=== PATIENT | male | born 1990 | race Hispanic/Latino ===

== ENCOUNTER 2018-06-08 12:18 | Inpatient (IN) | payer SELFPAY ==
[~2018-06-08] VITALS: Ht 175.3 cm; Wt 64.0 kg
[2018-06-08] MEDS ORDERED: IBUPROFEN 400 MG TAB PO ONE (12:30)
[2018-06-08 13:01] LABS: BASOPHILS % 0.6 % (0.0-1.0); EOSINOPHILS # (AUTO) 0.1 (0.0-0.4); EOSINOPHILS % 0.9 % (0.0-6.0); HEMOGLOBIN 13.2 g/dL (14.0-18.0); LYMPHOCYTES # (AUTO) 0.9 (1.0-3.2); MEAN CORPUSCULAR HEMOGLOBIN 31.6 pg (28-32); MEAN CORPUSCULAR HGB CONC 35.7 g/dL (31-35); MEAN CORPUSCULAR VOLUME 88.5 fL (81-99); MONOCYTES # (AUTO) 0.5 (0.2-0.8); MONOCYTES % 8.7 % (4.4-11.3); NEUTROPHILS # (AUTO) 3.9 (2.1-6.9); NEUTROPHILS % 72.4 % (38.7-80.0); PLATELET COUNT 223 x10e3/uL (140-360); RED BLOOD COUNT 4.18 x10e6/uL (4.3-5.7); RED CELL DISTRIBUTION WIDTH 11.2 % (11.7-14.4)
[2018-06-08 13:05] LABS: CLARITY,URINE CLEAR (CLEAR); COLOR,URINE ORANGE (YELLOW)
[2018-06-08 13:06] LABS: BILIRUBIN,URINE 1+ (NEGATIVE); KETONES,URINE 1+ (NEGATIVE); LEUKOCYTE ESTERASE ,URINE NEGATIVE (NEGATIVE); NITRITE,URINE NEGATIVE (NEGATIVE); PROTEIN,URINE DIPSTICK 1+ (NEGATIVE); URINE UROBILINOGEN 4 mg/dL (0.2 - 1)
--- NOTE | 2018-06-08 13:21 | Diagnostic Imaging Report ---
PROCEDURE: X-RAY CHEST, TWO VIEWS COMPARISON: None. INDICATIONS: SORE THROAT, COUGH FINDINGS: Lungs are well-inflated. No focal airspace consolidation, pleural effusion, or pneumothorax. Diffuse prominence of the interstitial markings in a central predominant distribution. Normal heart size. No acute osseous abnormality. CONCLUSION: Findings compatible with viral or atypical pneumonia in the clinical setting of sore throat and cough. No lobar consolidation. Followup chest radiograph in 6-8 weeks is suggested to document resolution. Dictated by: Nehemias Loya M.D. on 06/08/2018 at 13:27 Electronically approved by: Nehemias Loya M.D. on 06/08/2018 at 13:27
[2018-06-08 13:24] LABS: ALANINE AMINOTRANSFERASE 30 IU/L (0-55); ALBUMIN 3.4 g/dL (3.5-5.0); ALBUMIN/GLOBULIN RATIO 0.7 (0.8-2.0); ALKALINE PHOSPHATASE 47 IU/L (40-150); ANION GAP 12.9 mmol/L (8-16); BLOOD UREA NITROGEN 10 mg/dL (7-26); BUN/CREATININE RATIO 12 (6-25); CALCIUM 9.2 mg/dL (8.4-10.2); CARBON DIOXIDE 26 mmol/L (22-29); CHLORIDE 101 mmol/L (98-107); CREATININE, SERUM 0.82 mg/dL (0.72-1.25); EST GLOMERULAR FILTRATION RATE > 60 ML/MIN (60-); GLUCOSE 89 mg/dL (74-118); POTASSIUM 3.9 mmol/L (3.5-5.1); SODIUM 136 mmol/L (136-145)
[2018-06-08 13:35] LABS: BACTERIA,URINE FEW /HPF; EPITHELIAL CELLS,URINE FEW /LPF
[2018-06-08] MEDS ORDERED: LEVOFLOXACIN 500MG/D5W 100ML 100 ML IV STA (14:04)
--- NOTE | 2018-06-08 14:32 | Diagnostic Imaging Report ---
PROCEDURE: CT ABDOMEN AND PELVIS WITHOUT CONTRAST TECHNIQUE: The abdomen and pelvis were scanned utilizing a multidetector helical scanner from the diaphragm to the lesser trochanter after the oral administration of water. No intravenous contrast was administered per referring physician request. Coronal and sagittal multiplanar reformations were obtained. COMPARISON: None. INDICATIONS: RIGHT LOWER ABDOMINAL PAIN, FEVER FINDINGS: ABSENCE OF INTRAVENOUS CONTRAST DECREASES SENSITIVITY FOR DETECTION OF FOCAL LESIONS AND VASCULAR PATHOLOGY. LOWER THORAX: Central predominant groundglass opacities within the visualized right middle lobe, lingula, and lower lobes. No pleural or pericardial effusion.. HEPATOBILIARY: No focal hepatic lesions. No biliary ductal dilatation. SPLEEN: No splenomegaly. PANCREAS: No focal masses or ductal dilatation. ADRENALS: No adrenal nodules. KIDNEYS/URETERS: 1.5 cm hypoattenuating lesion in the right kidney, average internal attenuation 0-5 Hounsfield units compatible with a simple cyst. No additional focal renal lesion. No hydronephrosis. No renal, ureteral, or bladder calculi. PELVIC ORGANS/BLADDER: The urinary bladder is incompletely distended but otherwise unremarkable. Prostate and seminal vesicles appear normal.. PERITONEUM / RETROPERITONEUM: No ascites. No pneumoperitoneum. LYMPH NODES: No pelvic sidewall, retroperitoneal, or mesenteric lymphadenopathy. VESSELS: Limited evaluation without intravenous contrast. The abdominal aorta is non-aneurysmal. GI TRACT: The large bowel shows no evidence of distention or wall thickening. The appendix is normal. No small bowel dilatation to suggest obstruction. BONES AND SOFT TISSUES: No focal soft tissue abnormalities. No osseous destructive lesions. Transitional lumbosacral anatomy with a right-sided pseudoarthrosis between L5 and S1. IMPRESSION: No acute intra-abdominal or pelvic CT abnormalities. Normal appendix. Pulmonary groundglass opacities partially visualized, suggestive of viral or atypical pneumonia. Dictated by: Nehemias Loya M.D. on 06/08/2018 at 14:36 Electronically approved by: Nehemias Loya M.D. on 06/08/2018 at 14:36
[2018-06-08] MEDS: ALBUTEROL/IPRATROPIUM 3 ML NEB NEB SCH ×3 (15:00→23:25)
[2018-06-08] MEDS ORDERED: ACETAMINOPHEN 325 MG TAB PO PRN (15:00)
[2018-06-08] MEDS ORDERED: IBUPROFEN 600 MG TAB PO PRN (15:00)
[2018-06-08] MEDS: VANCOMYCIN 1GM/NS 250 ML 250 ML IV SCH (15:41)
[2018-06-08] MEDS: METHYLPREDNISOLONE SOD SUCC 40 MG/ML VIAL IV SCH (15:41)
[2018-06-08 16:30] VITALS: BP 115/70
[2018-06-08 16:37] VITALS: BP 115/70
[2018-06-08 20:41] VITALS: BP 115/64
[2018-06-08 20:56] LABS: HIV 1&2 AB SCREEN ***REACTIVE*** (NONREACTIVE)
[2018-06-08] MEDS: BENZONATATE 100 MG CAP PO SCH (21:00)
--- NOTE | 2018-06-08 21:14 | History and Physical ---
PRIMARY CARE PHYSICIAN: None. CHIEF COMPLAINT: Fatigue, weight loss. HISTORY OF PRESENT ILLNESS: This is a 28-year-old man with a history of pharyngitis, who has been having a couple of weeks of fatigue, tiredness, weight loss about 10 pounds, unintentional, some cough, chills and sweats at home. Went to [facility], given azithromycin 2 weeks ago, but symptoms persisted. When he came here to the hospital, he was found to have pneumonia which appears to be atypical in appearance and signs of ground-glass opacity. He is admitted for further evaluation and management. The patient has not traveled out of the country for the entire year. PAST MEDICAL HISTORY: Right renal cyst, pharyngitis. PAST SURGICAL HISTORY: None. ALLERGIES: PER ELECTRONIC MEDICAL RECORD. FAMILY HISTORY/SOCIAL HISTORY: The patient drinks alcohol, occasional. No illicits. He smokes marijuana occasionally. 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 MEDICATIONS: Per electronic medical record. REVIEW OF SYSTEMS: Denies any dizziness, chest pain. Denies any leg pain, back pain, headache, blurred vision. PHYSICAL EXAMINATION VITAL SIGNS: Have been reviewed. Temperature as high as 101.3 and heart rate as high as 109. GENERAL: A tired-appearing man, resting in bed. HEENT: Anicteric. Pupils are responsive to light. No oral lesions. CARDIOVASCULAR: Normal S1 and S2. LUNGS: Bilateral breath sounds somewhat reduced, mildly coarse. ABDOMEN: Soft, nontender, nondistended. EXTREMITY: No edema. No calf tenderness. NEUROLOGICAL: Alert and oriented times 3. Moves all extremities. SKIN: Dry. PSYCHIATRIC: Normal affect. LABS: Reviewed. MEDICATIONS: Reviewed. ASSESSMENT: [id number]-old man with, 1. Pneumonia, likely atypical, likely pneumonitis with ground-glass opacity. 2. Unintentional weight loss. 3. Normocytic anemia, mild. 4. Acute transaminitis. 5. Hyperbilirubinemia. PLAN 1. Continue Levaquin and vancomycin. 2. Also treat with IV steroids. 3. His mono screen testing is negative. Group A Strep is negative. 4. We will obtain HIV screen and CD4 for unintentional weight loss. 5. Check TSH. 6. Check sed rate. 7. Obtain hepatitis panel. 8. Will follow up blood cultures and urine cultures. 9. Will obtain viral respiratory panel. 1. Lovenox for DVT prophylaxis and Pepcid. 2. Disposition: Follow up labs. Job#: [id number] JESÚS
[2018-06-08] MEDS: GUAIFENESIN/DEXTROMETHORPHAN LIQD 5 ML UDC NG SCH (21:34)
[2018-06-09] VITALS (8 sets, daily range): BP systolic 110–122; BP diastolic 62–78
[2018-06-09] MEDS: ALBUTEROL/IPRATROPIUM 3 ML NEB NEB SCH ×6 (03:20→23:30)
[2018-06-09] MEDS: METHYLPREDNISOLONE SOD SUCC 40 MG/ML VIAL IV SCH ×2 (03:45→15:02)
[2018-06-09] MEDS: GUAIFENESIN/DEXTROMETHORPHAN LIQD 5 ML UDC NG SCH ×2 (05:10→14:00)
[2018-06-09] MEDS: FAMOTIDINE 20 MG TAB PO SCH ×2 (08:00→16:30)
[2018-06-09] MEDS: BENZONATATE 100 MG CAP PO SCH ×3 (08:00→21:39)
[2018-06-09] MEDS: LEVOFLOXACIN 750MG/D5W 150ML 150 ML IV SCH (14:45)
[2018-06-09] MEDS: VANCOMYCIN 1GM/NS 250 ML 250 ML IV SCH (16:30)
[2018-06-09] MEDS: ENOXAPARIN SOD INJ 40 MG/0.4 ML SYR SC SCH (16:30)
[2018-06-09] MEDS ORDERED: GUAIFENESIN/DEXTROMETHORPHAN LIQD 5 ML UDC NG PRN (17:15)
--- NOTE | 2018-06-09 21:40 | Progress Note ---
DATE: June 09, 2018 TIME: 5 p.m. OVERNIGHT: No events, feeling a little better. REVIEW OF SYSTEMS: Denies any dizziness, chest pain, nausea, vomiting, leg pain, back pain. PHYSICAL EXAMINATION: VITAL SIGNS: Reviewed. GENERAL APPEARANCE: Tired-appearing man resting in bed. HEENT: Anicteric. CARDIOVASCULAR: Normal S1 and S2. LUNGS: He has moderate breath sounds, slightly reduced. ABDOMEN: Soft, nontender, nondistended. EXTREMITIES: No edema. SKIN: Dry. PSYCHIATRIC: Flat affect. LABS: Reviewed. MEDICATIONS: Reviewed. ASSESSMENT: A 28-year-old man: 1. Pneumonia. 2. Pneumonitis. 3. Unintentional weight loss. 4. Normocytic anemia. 5. Acute transaminitis. 6. Hyperbilirubinemia. PLAN: 1. Continue vancomycin and Levaquin. 2. Continue IV steroids. 3. [place] screen negative, strep testing negative. 4. Follow up HIV screening. 5. Follow up QuantiFERON testing. 6. Follow up hepatitis panel. 7. TSH was somewhat low. 8. His HIV screening is reactive, will follow up confirmatory testing. Job#: [id number]
[2018-06-10] VITALS (7 sets, daily range): BP systolic 110–130; BP diastolic 63–78
[2018-06-10] MEDS: ALBUTEROL/IPRATROPIUM 3 ML NEB NEB SCH ×6 (03:00→23:30)
[2018-06-10] MEDS: METHYLPREDNISOLONE SOD SUCC 40 MG/ML VIAL IV SCH ×2 (03:04→15:08)
[2018-06-10] MEDS: BENZONATATE 100 MG CAP PO SCH ×3 (08:30→20:13)
[2018-06-10] MEDS: FAMOTIDINE 20 MG TAB PO SCH ×2 (08:30→16:30)
--- NOTE | 2018-06-10 08:42 | Progress Note ---
DATE: June 10, 2018 TIME: 8:15 a.m. OVERNIGHT: No events. Feeling a little better. REVIEW OF SYSTEMS: Denies any dizziness or chest pain. PHYSICAL EXAMINATION VITAL SIGNS: Reviewed. GENERAL: A tired-appearing man resting in bed. HEENT: Anicteric. CARDIOVASCULAR: Normal S1 and S2. LUNGS: Moderate breath sounds. ABDOMEN: Soft and nondistended. Mild tenderness. EXTREMITIES: No edema. SKIN: Dry. PSYCHIATRIC: Flat affect. LABS: Reviewed. MEDICATIONS: Reviewed. ASSESSMENT: A 28-year-old man with: 1. Pneumonia. 2. Pneumonitis. 3. Unintentional weight loss. 4. Normocytic anemia. 5. Acute transaminitis. 6. Hyperbilirubinemia. 7. Positive human immunodeficiency virus screening, but confirmatory test is still pending. PLAN 1. Continue antibiotics. 2. Continue steroids. 3. [place] screening strep was negative. 4. Follow up QuantiFeron testing. 5. Follow up HIV confirmatory testing. Job#: [id number] CHACHO
--- NOTE | 2018-06-10 08:43 | Progress Note ---
DATE: ADDENDUM TO PROGRESS NOTE REVIEW OF SYSTEMS: Denies any dizziness, chest pain, shortness of breath, fever, or chills. No nausea, vomiting, diarrhea, leg pain, back pain, or headache. Job#: [id number] CF
[2018-06-10] MEDS: LEVOFLOXACIN 750MG/D5W 150ML 150 ML IV SCH (14:45)
[2018-06-10] MEDS: VANCOMYCIN 1GM/NS 250 ML 250 ML IV SCH (16:00)
[2018-06-10] MEDS: ENOXAPARIN SOD INJ 40 MG/0.4 ML SYR SC SCH (17:00)
[2018-06-11] VITALS: BP 131/59
[2018-06-11] MEDS: ALBUTEROL/IPRATROPIUM 3 ML NEB NEB SCH ×3 (03:00→10:20)
[2018-06-11] MEDS: METHYLPREDNISOLONE SOD SUCC 40 MG/ML VIAL IV SCH (03:30)
[2018-06-11 04:00] VITALS: BP 127/68
[2018-06-11] MEDS ORDERED: TESSALON PERLE100 MG PO (07:11)
[2018-06-11] MEDS ORDERED: PREDNISONE20 MG PO (07:11)
[2018-06-11] MEDS ORDERED: LEVAQUIN500 MG PO (07:11)
[2018-06-11 08:32] VITALS: BP 115/72
[2018-06-11 09:30] VITALS: BP 115/72
--- NOTE | 2018-06-11 09:32 | Discharge Summary ---
PRINCIPAL DIAGNOSES 1. Pneumonia. 2. Pneumonitis. 3. Unintentional weight loss. 4. Normocytic anemia. 5. Acute transaminitis. 6. Hyperbilirubinemia. 7. Positive human immunodeficiency virus screening, but confirmatory test still pending. SECONDARY DIAGNOSIS: None. CHIEF COMPLAINT: Weight loss and fatigue. HISTORY OF PRESENT ILLNESS: A 28-year-old man with weight loss and fatigue. Refer to the H and P for further details. HOSPITAL COURSE: The patient was found to have unintentional weight loss and fatigue. He was found to have pneumonia, pneumonitis, acute transaminitis, hyperbilirubinemia. His HIV screening was positive, but confirmatory test is still pending. We also did QuantiFeron testing, which has also been pending. The patient will be discharged home today, and will follow up with me in 5 days for final results. In the meantime, he will be discharged home with antibiotics and steroid therapy. DISCHARGE MEDICATIONS: Per electronic medical record and include benzonatate, Levaquin and prednisone. FOLLOWUP: With me in 1 week. YASMIN BILLY MD Job#: [id number] PA
== END 2018-06-11 11:23 | disposition home or self-care (01) | DRG 976 ==
LOC: ER 12:18 → ERHOLD 15:07 → MED/SURG3 15:56
PROVIDERS: ADMIT Internal Medicine; ATTEND Internal Medicine
DX: J18.9 Pneumonia, unspecified organism (principal); B20 Human immunodeficiency virus [HIV] disease; R63.4 Abnormal weight loss; Z68.20 Body mass index [BMI] 20.0-20.9, adult; D64.9 Anemia, unspecified; R74.0 Nonspecific elevation of levels of transaminase and lactic acid dehydrogenase [LDH]; E80.6 Other disorders of bilirubin metabolism
CPT/HCPCS: 36415; 71046; 74176; 80053; 81001; 83518; 83605; 84443; 85025; 85651; 86308; 86689; 87040; 87070; 87086; 87390; 87535; 94640; 99284; G0433; G0435; J1650; J1956; J2920; J3370

== ENCOUNTER 2018-07-01 22:08 | Inpatient (IN) | payer SELFPAY ==
[~2018-07-01] VITALS: Ht 175.3 cm; Wt 75.4 kg
[~2018-07-01 22:08] MED LIST: LEVAQUIN500 MG PO; PREDNISONE20 MG PO; TESSALON PERLE100 MG PO
[2018-07-01] MEDS ORDERED: ONDANSETRON HCL INJ 2 MG/ML VIAL IV STA (22:29)
[2018-07-01] MEDS ORDERED: SODIUM CHLORIDE 0.9% 1000ML 1,000 ML IV STA (22:29)
[2018-07-01] MEDS ORDERED: MORPHINE SULFATE 2 MG/ML SYR IV STA (22:29)
[2018-07-01] MEDS ORDERED: ACETAMINOPHEN 1000 MG/100 ML IV STA ×2 (22:37)
[2018-07-01 22:59] LABS: BASOPHILS % 0.2 % (0.0-1.0); EOSINOPHILS # (AUTO) 0.1 (0.0-0.4); EOSINOPHILS % 2.6 % (0.0-6.0); HEMOGLOBIN 11.8 g/dL (14.0-18.0); MEAN CORPUSCULAR HEMOGLOBIN 31.3 pg (28-32); MEAN CORPUSCULAR HGB CONC 34.7 g/dL (31-35); MEAN CORPUSCULAR VOLUME 90.2 fL (81-99); MONOCYTES # (AUTO) 0.5 (0.2-0.8); MONOCYTES % 10.1 % (4.4-11.3); NEUTROPHILS % 65.7 % (38.7-80.0); PLATELET COUNT 295 x10e3/uL (140-360); RED BLOOD COUNT 3.77 x10e6/uL (4.3-5.7); RED CELL DISTRIBUTION WIDTH 12.6 % (11.7-14.4)
[2018-07-01 23:11] LABS: INR 1.14; PROTHROMBIN TIME 13.7 seconds (11.9-14.5)
[2018-07-01 23:12] LABS: PARTIAL THROMBOPLASTIN TIME 38.9 seconds (23.8-35.5)
[2018-07-01 23:16] LABS: CLARITY,URINE CLEAR (CLEAR); COLOR,URINE YELLOW (YELLOW); LEUKOCYTE ESTERASE ,URINE NEGATIVE (NEGATIVE); NITRITE,URINE NEGATIVE (NEGATIVE)
[2018-07-01 23:17] LABS: BILIRUBIN,URINE NEGATIVE (NEGATIVE); KETONES,URINE NEGATIVE (NEGATIVE); PROTEIN,URINE DIPSTICK 1+ (NEGATIVE); URINE UROBILINOGEN 1 mg/dL (0.2 - 1)
[2018-07-01 23:21] LABS: ALANINE AMINOTRANSFERASE 11 IU/L (0-55); ALBUMIN/GLOBULIN RATIO 0.6 (0.8-2.0); ALKALINE PHOSPHATASE 58 IU/L (40-150); ANION GAP 14.8 mmol/L (8-16); BLOOD UREA NITROGEN 7 mg/dL (7-26); BUN/CREATININE RATIO 10 (6-25); CALCIUM 8.8 mg/dL (8.4-10.2); CARBON DIOXIDE 24 mmol/L (22-29); CHLORIDE 104 mmol/L (98-107); CREATINE KINASE 69 IU/L (30-200); CREATININE, SERUM 0.68 mg/dL (0.72-1.25); EST GLOMERULAR FILTRATION RATE > 60 ML/MIN (60-); GLUCOSE 87 mg/dL (74-118); MAGNESIUM 1.8 MG/DL (1.3-2.1); POTASSIUM 3.8 mmol/L (3.5-5.1); SODIUM 139 mmol/L (136-145)
[2018-07-01 23:26] LABS: BACTERIA,URINE RARE /HPF; EPITHELIAL CELLS,URINE RARE /LPF; MUCUS,URINE MANY (RARE); RBC,URINE 0-5 /HPF (0-5); WBC,URINE (MAN) 0-5 /HPF (0-5)
--- NOTE | 2018-07-01 23:29 | Diagnostic Imaging Report ---
CHEST 2 VIEWS, Technique: CHEST 2 VIEWS Comparison: 06/08/2018 Clinical history: Cough, fever DISCUSSION: Normal cardiomediastinal silhouette. Increased diffuse bilateral hazy opacities. No effusion or pneumothorax. IMPRESSION: Worsening pneumonia. Differential includes atypical infection, in particular PCP in the proper clinical setting. Signed by: Dr Mariposa Topete MD on 07/01/2018 11:26 PM
[2018-07-01] MEDS: AZITHROMYCIN 500MG/NS 250 ML 250 ML IV SCH (23:37)
[2018-07-01] MEDS: CEFTRIAXONE SOD 1 GM VIAL IV SCH (23:37)
[2018-07-01 23:44] LABS: THYROID STIMULATING HORMONE 0.192 uIU/mL (0.350-4.940)
[2018-07-01] MEDS: TRIMETHOPRIM/SULFAMETHOXAZOLE 160-800 MG TAB PO SCH (23:56)
[2018-07-02] VITALS (9 sets, daily range): BP systolic 99–118; BP diastolic 61–74
[2018-07-02] MEDS ORDERED: ALBUTEROL SULF 0.083% NEB SOLN 3 ML NEB NEB PRN (00:45)
[2018-07-02] MEDS: SODIUM CHLORIDE 0.9% 1000ML 1,000 ML IV SCH ×2 (01:09→11:06)
[2018-07-02] MEDS: TRIMETHOPRIM/SULFAMETHOXAZOLE 160-800 MG TAB PO SCH ×2 (05:43→11:06)
[2018-07-02] MEDS: AZITHROMYCIN 500MG/NS 250 ML 250 ML IV SCH (08:51)
--- NOTE | 2018-07-02 10:08 | History and Physical ---
PRIMARY CARE PHYSICIAN: None. CHIEF COMPLAINT: Shortness of breath, cough, and fever. HISTORY OF PRESENT ILLNESS: This is a 28-year-old man, who was recently admitted back in May with fatigue and weight loss, found to have pneumonia and also found to have positive HIV screening, confirmatory test was still pending at the time. Patient transitioned home with plan to followup outpatient. Patient did not followup. Now, he has represented with fever, anorexia, cough, shortness of breath. He is found to have pneumonia with findings of possible characteristic appearing chest x-ray of PCP. He is admitted for further evaluation and management. PAST MEDICAL HISTORY: Pneumonia, likely atypical; pneumonitis; unintentional weight loss; normocytic anemia, mild; acute transaminitis; hyperbilirubinemia; positive HIV screening test without confirmatory test as yet; pharyngitis; right renal cyst. PAST SURGICAL HISTORY: None. ALLERGIES: PER ELECTRONIC MEDICAL RECORD. FAMILY/SOCIAL HISTORY: Patient drinks alcohol occasionally. No illicits. He smokes marijuana occasionally. 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 MEDICATIONS: Per electronic medical record. REVIEW OF SYSTEMS: Denies any dizziness, chest pain. Denies any leg pain, back pain, headache, vision changes. PHYSICAL EXAMINATION: VITAL SIGNS: Reviewed. GENERAL APPEARANCE: Tired-appearing man resting in bed. HEENT: Anicteric. Lip piercing. CARDIOVASCULAR: Normal S1 and S2. LUNGS: He has reduced breath sounds throughout. ABDOMEN: Soft, nontender, nondistended. EXTREMITIES: No edema or calf tenderness. NEUROLOGICAL: Alert and oriented x3. Moving all extremities. SKIN: Dry. He has lip piercing. LABS: Reviewed. MEDICATIONS: Reviewed. ASSESSMENT: This is a 28-year-old man: 1. Pneumonia, atypical in appearance. 2. Unintentional weight loss. 3. Normocytic anemia. 4. Sinus tachycardia. 5. Anorexia. 6. Elevated AST with normal ALT. PLAN: 1. Antibiotics. 2. Infectious disease consultation. 3. Bactrim prophylactically. 4. HIV retesting as well as confirmatory testing. 5. DVT and GI prophylaxis with Lovenox and Pepcid. Job#: [id number]
[2018-07-02] MEDS: CEFTRIAXONE SOD 1 GM VIAL IV SCH (11:06)
[2018-07-02] MEDS ORDERED: METHYLPREDNISOLONE SOD SUCC 125 MG/2ML VIAL IV NR (15:30)
[2018-07-02] MEDS: IPRATROPIUM BROMIDE 0.02% 2.5 ML NEB NEB PRN ×2 (15:30→23:35)
[2018-07-02] MEDS: LEVOFLOXACIN 750MG/D5W 150ML 150 ML IV SCH (16:00)
[2018-07-02] MEDS: ACETAMINOPHEN 325 MG TAB PO PRN ×2 (16:00→21:27)
[2018-07-02 16:09] LABS: ABG PCO2 23 mmHg (41-51); ABG PH 7.49 (7.31-7.41)
[2018-07-02 16:10] LABS: ABG HCO3 18 mmol/L (23-28); ABG PO2 63 mmHg (80-105)
[2018-07-02] MEDS: VANCOMYCIN HCL 1.25 GM in SODIUM CHLORIDE 0.9% 250ML 250 ML IV SCH (17:00)
--- NOTE | 2018-07-02 17:44 | Consultation ---
DATE OF CONSULTATION: July 02, 2018 REASON FOR CONSULTATION: To evaluate and assist in treating a patient who has pneumonia and recent positive screening test for HIV. HISTORY OF PRESENT ILLNESS: Information is gathered from the current medical record. I interviewed the patient at the bedside. He is a 28-year-old man who has sex with men who reports he has been getting ill since April of this year with intermittent cough, progressively worsening shortness of breath and intermittent fevers. He has been in the hospital at least twice at which time he was treated with antibiotics and discharged. Most recently he was in this hospital for about 4 days in May of this year. According to him, he received antibiotics for 4 days and was discharged home on 5 days of antibiotics. He reported that he felt better somewhat until a few days ago when he again developed fevers, increasing shortness of breath with a cough that for the most part is nonproductive. The patient reports that from April to now he has lost about 25 pounds of weight unintentionally. He denies any vomiting. He denies any significant diarrhea prior to hospitalization. At presentation on July 01, he had a temperature of 103.8 degrees Fahrenheit, a pulse rate of 138, respiratory rate of 21 to 24, and blood pressure 160/68. He has since had blood pressure as low as 91/57. His CBC on July 01 showed a white count of 4.5 thousand, hemoglobin 11.8, platelet count 295,000. Differential on his white count shows 65% neutrophils, 21% lymphocytes on an automated differential. There were 10% monocytes. His serum creatinine was found to be 0.6. His AST was 38. ALT was normal. His lactic acid was found to be 12. His serum total protein 7.7, albumin 3.0. He has had blood and urine cultures collected which are being processed. A chest x-ray is reported with increased, diffuse bilateral hazy opacities with differentials including atypical pneumonia, in particular PCP. The patient has been started on treatment with Azithromycin, ceftriaxone, and Bactrim. ID consult is called to evaluate and assist with further management. PAST MEDICAL HISTORY: As reported above. On June 08, HIV test was reported nonreactive. On June 08, his HIV-1 and HIV-2 antibody test was positive. HIVP 24 antigen test was negative. A confirmatory test report is not available. There was a TB test/T-spot that was reported negative. The patient gives a history of renal cysts. He denies any history of previous diagnosis of HIV, tuberculosis. There is no history of diabetes, hypertension, cardiac, renal or liver disease. SOCIAL HISTORY: He smokes marijuana. He drinks alcohol occasionally. He denies intravenous drug use. As mentioned earlier, he is a man who has sex with men. FAMILY HISTORY: Positive for diabetes mellitus and unspecified intestinal diseases. ALLERGIES: AMOXICILLIN. MEDICATIONS: As reported earlier, he is started on treatment with Bactrim, ceftriaxone and Azithromycin. the rest of his medications are per the medication admission report. REVIEW OF SYSTEMS: The patient is alert. His sensorium is clear. He coughs intermittently. It sounds nonproductive. He appears ill. Otherwise, in no acute distress. He is complaining of pleuritic pain. No headache or neck stiffness. He complains of sore throat. No abdominal pain. No frequency or dysuria. He reports that he has had 2 loose stools. He saw blood on the toilet paper. PHYSICAL EXAMINATION GENERAL: He is an adult male. He appears ill, otherwise in no acute distress. He is hemodynamically stable. VITAL SIGNS: His maximum temperature was at presentation of 103.8 degrees Fahrenheit. His most recent temperature 100.5. HEENT: He has no gross pallor. No obvious icterus. No obvious oral or oropharyngeal thrush. NECK: Supple. CHEST: Symmetric. Breath sounds are course in the lung li. HEART: Sounds are regular. There is tachycardia. No significant murmur. ABDOMEN: Soft and nontender. Normal bowel sounds. EXTREMITIES: No acute erythema of his extremities. No palpable adenopathy. SKIN: No obvious skin rash. NEUROLOGIC: No obvious focal neurologic deficit. LABORATORY DATA: His white count is 4.5, hemoglobin 11.8, platelet count 295,000. Differentials on his white count reported above. His serum creatinine is 0.6 from July 01. Liver function tests are unremarkable except for AST of 38. We have no ABGs report. HIV viral load ordered today is being processed. IMPRESSION: I suspect this 28-year-old male who has sex with men with a positive HIV-1 and HIV-2 antibody test on June 08 has HIV infection. I also suspect he has pneumocystis pneumonia, although he could have other atypical pneumonia. RECOMMENDATIONS: I suggest we change his antibiotic treatment to a combination of vancomycin, Levaquin and Bactrim. Will follow up on his urologies and cultures. Will check his CD-4 count. Will add Solu-Medrol to his treatment regimen. I have discussed the findings and treatment with the patient at the bedside. I will discuss the patient with the primary care physician, whom I thank for the consult and the opportunity to participate in the patient's care. Job#: [id number] GH
[2018-07-02] MEDS: TRIMETHOPRIM IV SCH (18:58)
[2018-07-02] MEDS: SULFAMETHOXAZOLE IV SCH (18:58)
[2018-07-02] MEDS: DEXTROSE 5% IV SCH (18:58)
[2018-07-02] MEDS: METHYLPREDNISOLONE SOD SUCC 125 MG/2ML VIAL IV SCH (21:20)
[2018-07-03] VITALS (7 sets, daily range): BP systolic 103–112; BP diastolic 58–72
[2018-07-03] MEDS: SODIUM CHLORIDE 0.9% 1000ML 1,000 ML IV SCH ×3 (01:15→21:45)
[2018-07-03] MEDS: TRIMETHOPRIM IV SCH ×3 (01:20→18:36)
[2018-07-03] MEDS: SULFAMETHOXAZOLE IV SCH ×3 (01:20→18:36)
[2018-07-03] MEDS: DEXTROSE 5% IV SCH ×3 (01:20→18:36)
[2018-07-03] MEDS: VANCOMYCIN HCL 1.25 GM in SODIUM CHLORIDE 0.9% 250ML 250 ML IV SCH ×2 (04:35→17:44)
[2018-07-03] MEDS: METHYLPREDNISOLONE SOD SUCC 125 MG/2ML VIAL IV SCH ×3 (05:21→21:20)
[2018-07-03 05:47] LABS: HEMATOCRIT 33.2 % (38.2-49.6); HEMOGLOBIN 11.4 g/dL (14.0-18.0); LYMPHOCYTES # (AUTO) 0.4 (1.0-3.2); LYMPHOCYTES % 11.5 % (18.0-39.1); MEAN CORPUSCULAR HEMOGLOBIN 30.8 pg (28-32); MEAN CORPUSCULAR HGB CONC 34.3 g/dL (31-35); MEAN CORPUSCULAR VOLUME 89.7 fL (81-99); MONOCYTES # (AUTO) 0.2 (0.2-0.8); MONOCYTES % 5.1 % (4.4-11.3); NEUTROPHILS # (AUTO) 2.6 (2.1-6.9); NEUTROPHILS % 83.1 % (38.7-80.0); PLATELET COUNT 274 x10e3/uL (140-360); RED CELL DISTRIBUTION WIDTH 12.6 % (11.7-14.4)
[2018-07-03 06:05] LABS: ALANINE AMINOTRANSFERASE 9 IU/L (0-55); ALBUMIN 2.4 g/dL (3.5-5.0); ALBUMIN/GLOBULIN RATIO 0.6 (0.8-2.0); ALKALINE PHOSPHATASE 48 IU/L (40-150); ANION GAP 10.1 mmol/L (8-16); BLOOD UREA NITROGEN 5 mg/dL (7-26); BUN/CREATININE RATIO 8 (6-25); CALCIUM 8.7 mg/dL (8.4-10.2); CARBON DIOXIDE 23 mmol/L (22-29); CHLORIDE 105 mmol/L (98-107); CREATININE, SERUM 0.65 mg/dL (0.72-1.25); EST GLOMERULAR FILTRATION RATE > 60 ML/MIN (60-); GLUCOSE 138 mg/dL (74-118); POTASSIUM 4.1 mmol/L (3.5-5.1); SODIUM 134 mmol/L (136-145)
--- NOTE | 2018-07-03 06:51 | Diagnostic Imaging Report ---
CHEST SINGLE (PORTABLE), Technique: CHEST SINGLE (PORTABLE) Comparison: 07/01/2018 Clinical history: Pneumonia DISCUSSION: Normal cardiomediastinal silhouette. Persistent diffuse bilateral hazy opacities; the apparent increase may be related to differences in technique. No effusion or pneumothorax. IMPRESSION: Persistent findings in keeping with pneumonia. Signed by: Dr Mariposa Topete MD on 07/03/2018 6:48 AM
[2018-07-03] MEDS: TRAMADOL HCL 50 MG TAB PO PRN (12:08)
--- NOTE | 2018-07-03 15:05 | Progress Note ---
DATE: July 03, 2018 TIME: 2:44 p.m. OVERNIGHT: No events. REVIEW OF SYSTEMS: Denies any dizziness, chest pain, leg pain, back pain, headache. PHYSICAL EXAMINATION VITAL SIGNS: Reviewed. GENERAL: A tired-appearing man resting in bed. HEENT: Anicteric. CARDIOVASCULAR: Normal S1 and S2. LUNGS: Reduced breath sounds throughout. ABDOMEN: Soft and nontender. EXTREMITIES: No edema. SKIN: Dry. PSYCHIATRIC: Flat affect. LABS: Reviewed. MEDICATIONS: Reviewed. ASSESSMENT: A 28-year-old man with: 1. Pneumonia, atypical. 2. Unintentional weight loss. 3. Normocytic anemia. 4. Positive human immunodeficiency virus screening. 5. Sinus tachycardia. 6. Anorexia. 7. Elevated liver function tests. PLAN 1. Continue antibiotics. 2. Follow up testing for HIV. 3. Continue IV Bactrim. 4. Continue IV steroids. 5. Continue IV vancomycin and Levaquin. 6. Follow up results. Discussed with the patient and family at bedside. Job#: [id number] CHACHO
[2018-07-03] MEDS: LEVOFLOXACIN 750MG/D5W 150ML 150 ML IV SCH (15:42)
--- NOTE | 2018-07-03 18:11 | Progress Note ---
DATE: July 03, 2018 INFECTIOUS DISEASE PROGRESS NOTE The patient is alert and responsive. He feels much better today compared to yesterday. He still has some pleuritic-type pain. He is not coughing much now. There is less dyspnea at rest and with exertion. No report of nausea, vomiting or diarrhea. In the past 24 hours his temperatures have ranged from 96.5 to 102.5 degrees Fahrenheit. He is hemodynamically stable. He has no gross pallor, no obvious icterus, no oropharyngeal lesions. His neck is supple. The chest is symmetric. Breath sounds are coarse in the lung li. Heart sounds are regular. There is no new murmur. The abdomen is soft. Bowel sounds are present. There is no acute erythema of his extremities. His white count is 3.1, hemoglobin 11.4, platelet count 274. Differentials on his white count 83% neutrophils on an automatic differential. His liver function tests are back to normal. His creatinine is 0.6. His absolute CD4 count report is pending. HIV viral load is pending. Serum RPR is pending. His blood cultures from July 01 are negative. Urine culture shows no growth so far. CT scan of his chest has been previously reported. IMPRESSION: He has pneumonia, likely atypical, highly suspicious for Pneumocystis jirovecii. He has a positive screening test for HIV on June 08. Confirmatory test reports are pending. CD4 count and HIV viral load reports are pending. I suggest continue current antimicrobial coverage. Follow up on his cultures and serologies. Monitor temperature, CBC, renal function. We started the patient on Solu-Medrol yesterday with a pO2 of 63 on ABG. Job#: [id number] EV
[2018-07-04] VITALS (7 sets, daily range): BP systolic 101–118; BP diastolic 59–91
[2018-07-04] MEDS: TRIMETHOPRIM IV SCH ×3 (01:21→17:00)
[2018-07-04] MEDS: SULFAMETHOXAZOLE IV SCH ×3 (01:21→17:00)
[2018-07-04] MEDS: DEXTROSE 5% IV SCH ×3 (01:21→17:00)
[2018-07-04] MEDS: SODIUM CHLORIDE 0.9% 1000ML 1,000 ML IV SCH ×2 (02:35→14:26)
[2018-07-04] MEDS: VANCOMYCIN HCL 1.25 GM in SODIUM CHLORIDE 0.9% 250ML 250 ML IV SCH (05:03)
[2018-07-04] MEDS: METHYLPREDNISOLONE SOD SUCC 125 MG/2ML VIAL IV SCH ×3 (06:00→21:57)
[2018-07-04] MEDS: ONDANSETRON HCL INJ 2 MG/ML VIAL IV PRN ×2 (10:56→17:00)
--- NOTE | 2018-07-04 14:05 | Progress Note ---
DATE: July 04, 2018 MEDICINE PROGRESS NOTE TIME OF SERVICE: 12:30 p.m. OVERNIGHT: No acute events. REVIEW OF SYSTEMS: Patient denies chest pain or shortness of breath. No dizziness, headache, blurry vision, nausea, vomiting, diarrhea or leg pain noted. VITAL SIGNS: T 96.7, P 84, respirations 18, BP 101/66. SpO2 96% on 2 liter nasal cannula. LABS: WBC 3.14, H\T\H 11.4 and 33.2. Sodium 134, potassium 4.1, chloride 105, carbon dioxide 23, gap 10.1, BUN is 5 and creatinine 0.65. Followup RPR and HIV confirmatory pending. MEDICATIONS 1. Zofran q.4 h. p.r.n. 2. Bactrim IV q.8 h. 3. Solu-Medrol 60 mg q.8 h. IV. 4. Vancomycin 1.25 g q.12 h. Therapeutic lab value noted. 5. Normal saline reduced to 75 mL an hour. 6. PRN albuterol. 7. Levaquin q.4 h. IV. 8. PRN Ultram. 9. PRN Atrovent. 10. PRN Tylenol. 11. Q.8 h. Tessalon. ASSESSMENT AND PLAN: This is a 28-year-old man with 1. Pneumonia, atypical. Continue IV antibiotics. 2. Unintentional weight loss. Confirmatory HIV testing pending. 3. Normocytic anemia. 4. Positive human immunodeficiency virus screening. Confirmatory pending. 5. Sinus tachycardia. Resolved with ongoing fluid intake. 6. Anorexia. 7. Elevated liver function tests. 8. Prophylaxis. Patient ambulating in room intermittently. 9. Disposition. Continue broad-spectrum antibiotic coverage with IV steroids. Obtain case management consult for outpatient resources if confirmatory tests are positive. Provide melatonin for complaint of insomnia. Dictated by: Gian Jay NP Job#: [id number] YOSSI
[2018-07-04] MEDS: BENZONATATE 100 MG CAP PO SCH ×2 (14:27→21:57)
[2018-07-04] MEDS: LEVOFLOXACIN 750MG/D5W 150ML 150 ML IV SCH (14:27)
--- NOTE | 2018-07-04 18:54 | Progress Note ---
DATE: July 04, 2018 The patient is fairly stable. He is in no acute distress. He reports that he still gets dyspneic and tachycardic when he walks to the bathroom and back to his bed. No adverse medication reaction reported. PHYSICAL EXAMINATION VITALS: In the past 24 hours, the temperatures were up to 99.6 degrees Fahrenheit. His most recent temperature is 96.4. He is hemodynamically stable. GENERAL: He has no gross pallor. No obvious icterus. HEENT: No oropharyngeal lesions. NECK: Supple. CHEST: Symmetric. Breath sounds are coarse in the lung li. Heart sounds are regular without a new murmur. ABDOMEN: Soft. Bowel sounds are present. There is no acute erythema of his extremities. LABS: His white count is 3.1, hemoglobin 11.4, platelet count 274 from July 03. His creatinine is 0.6 on July 03. His blood cultures are negative. His serum RPR and HIV viral loads are pending. His absolute CD4 count is reported as 2.1 with percent CD3/CD4 reported as 8. It is not clear whether this is a reversal in this report. IMPRESSION: I suspect he has human immunodeficiency virus/acquired immunodeficiency syndrome. I suspect pneumocystis pneumonia. He is on broad-spectrum antibiotics as well as steroids. His pO2 on ABG was 63. I suggest to continue current antimicrobial therapy. Consider pulmonary evaluation for possible bronchoscopy. Follow up on his serologies. Monitor temperature, CBC and renal function. Continue supportive care. Job#: [id number]
[2018-07-04] MEDS: MELATONIN 5 MG TABLET PO SCH (21:57)
[2018-07-05] VITALS (7 sets, daily range): BP systolic 97–119; BP diastolic 57–69
[2018-07-05] MEDS: SULFAMETHOXAZOLE IV SCH ×3 (00:49→20:00)
[2018-07-05] MEDS: DEXTROSE 5% IV SCH ×3 (00:49→20:00)
[2018-07-05] MEDS: TRIMETHOPRIM IV SCH ×3 (00:49→20:00)
[2018-07-05] MEDS: TRAMADOL HCL 50 MG TAB PO PRN (00:56)
[2018-07-05] MEDS: SODIUM CHLORIDE 0.9% 1000ML 1,000 ML IV SCH ×2 (01:58→15:18)
[2018-07-05] MEDS ORDERED: VANCOMYCIN HCL 1.5 GM in SODIUM CHLORIDE 0.9% 250ML 300 ML IV SCH (04:00)
[2018-07-05 06:00] LABS: HEMOGLOBIN 10.4 g/dL (14.0-18.0); LYMPHOCYTES # (AUTO) 0.3 (1.0-3.2); LYMPHOCYTES % 3.2 % (18.0-39.1); MEAN CORPUSCULAR HEMOGLOBIN 30.5 pg (28-32); MEAN CORPUSCULAR HGB CONC 34.7 g/dL (31-35); MONOCYTES # (AUTO) 0.4 (0.2-0.8); MONOCYTES % 4.7 % (4.4-11.3); PLATELET COUNT 367 x10e3/uL (140-360); RED BLOOD COUNT 3.41 x10e6/uL (4.3-5.7); RED CELL DISTRIBUTION WIDTH 12.8 % (11.7-14.4)
[2018-07-05] MEDS: BENZONATATE 100 MG CAP PO SCH ×3 (06:00→22:55)
[2018-07-05] MEDS: METHYLPREDNISOLONE SOD SUCC 125 MG/2ML VIAL IV SCH ×3 (06:00→22:55)
[2018-07-05 06:27] LABS: ALANINE AMINOTRANSFERASE 10 IU/L (0-55); ALBUMIN 2.2 g/dL (3.5-5.0); ALBUMIN/GLOBULIN RATIO 0.6 (0.8-2.0); ALKALINE PHOSPHATASE 43 IU/L (40-150); ANION GAP 11.8 mmol/L (8-16); BLOOD UREA NITROGEN 7 mg/dL (7-26); BUN/CREATININE RATIO 11 (6-25); CALCIUM 8.6 mg/dL (8.4-10.2); CARBON DIOXIDE 21 mmol/L (22-29); CHLORIDE 108 mmol/L (98-107); CREATININE, SERUM 0.62 mg/dL (0.72-1.25); EST GLOMERULAR FILTRATION RATE > 60 ML/MIN (60-); GLUCOSE 114 mg/dL (74-118); POTASSIUM 3.8 mmol/L (3.5-5.1); SODIUM 137 mmol/L (136-145)
[2018-07-05 08:56] LABS: LYMPHOCYTES % (MANUAL) 1 % (19-48); MONOCYTES % (MANUAL) 3 % (3.4-9.0); MYELOCYTES % (MANUAL) 1 % (0-0); NEUTROPHILS % (MANUAL) 95 % (40-74)
[2018-07-05 08:57] LABS: HYPOCHROMASIA SLIGHT; PLATELET ESTIMATE ADEQUATE; PLATELET MORPHOLOGY COMMENT NORMAL; RBC MORPHOLOGY COMMENT NORMAL
--- NOTE | 2018-07-05 10:29 | Consultation ---
DATE OF CONSULTATION: July 05, 2018 PULMONARY CONSULTATION REASON FOR CONSULTATION: Possible need for bronchoscopy. HISTORY OF PRESENT ILLNESS: Mr. Hernandez is a 28-year-old male who possibly has HIV. He presented to the emergency room with shortness of breath and pleuritic chest pain. Patient had positive HIV screening. He did not follow up, having cough and shortness of breath. Chest x-ray shows bilateral infiltrate. Patient is being treated for PCP. REVIEW OF SYSTEMS GENERAL: Denies any fever or chills. HEAD: Denies any head trauma. ENT: Denies any earache. CVS: Denies any chest pain. RESPIRATORY: Shortness of breath. OTHER: The rest of the review of systems are negative except as in HPI. PAST MEDICAL HISTORY: Pneumonia, weight loss, anemia, positive HIV screening, renal cyst. FAMILY AND SOCIAL HISTORY: Drinks alcohol socially. Admits to marijuana use. Does not smoke. 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 PHYSICAL EXAMINATION: VITALS: Temperature 95.7, pulse of 80, blood pressure 97/57, respiratory rate 18. HEENT: Head atraumatic, normocephalic. NECK: Supple. CHEST: Clear to auscultation bilaterally. No wheezing. HEART: S1, S2 audible. ABDOMEN: Soft, nontender. EXTREMITIES: No pedal edema. NEUROLOGIC: Awake and alert. LABS: White count of 8.7, hemoglobin 10.4, platelets 367. Chemistry within normal limits. Chest x-ray: Bilateral alveolar infiltrate. ASSESSMENT AND PLAN: Mr. Hernandez is a 28-year-old male who is being treated for presumed pneumocystis pneumonia. Patient has possibly human immunodeficiency virus. The confirmatory test is still pending. Absolute CD4 count is 2.1. PLAN: I was consulted because infectious disease consultants would like to have bronchoscopy and BAL. I have explained the procedure in detail to the patient, and the patient is hesitant to do the procedure now. He will think about it and let me know. I will schedule once he is agreeable for the procedure. Thank you for the consult. Job#: [id number]
--- NOTE | 2018-07-05 13:34 | Progress Note ---
DATE: July 05, 2018 MEDICINE PROGRESS NOTE TIME OF SERVICE: 12:30 p.m. OVERNIGHT: No acute events. REVIEW OF SYSTEMS: Patient denies chest pain or shortness of breath. Denies dizziness, headache, blurry vision, nausea, vomiting, diarrhea or leg pain. Reports shortness of breath on exertion. VITAL SIGNS: T 95.9, P 70, R 20, BP 102/61, pulse ox on room air 92%. PHYSICAL EXAMINATION GENERAL APPEARANCE: This is a very tired-appearing young man resting quietly in bed. HEENT: Normocephalic. No sinus tenderness. Nares patent. Oral mucosa moist and intact. CARDIOVASCULAR: S1 and S2 auscultated and distant. LUNGS/RESPIRATORY: Bilateral breath sounds are coarse and diminished in all li. Poor excursion. No cough noted during examination. ABDOMEN: Soft, nontender, nondistended. EXTREMITIES: No edema. SKIN: Dry. PSYCHIATRIC: Flat affect. LABS: WBC 8.7, H\T\H 10.4 and 30, platelet count 367. Sodium 137, potassium 3.8, chloride 108, CO2 21, gap 11.3, BUN 7, creatinine 0.62. Serum glucose 114. Continues with low proteins. MEDICATIONS 1. Bactrim IV q.8. 2. Tessalon Perles q.8. 3. Solu-Medrol 60 mg q.8. 4. Vancomycin q.12 h. 5. Normal saline via IV at 75 mL an hour. 6. PRN Ultram. 7. Melatonin 5 mg nightly. 8. PRN Zofran. 9. Levaquin q.24 h. IV. 10. PRN albuterol. 11. PRN ipratropium. 12. PRN Tylenol. ASSESSMENT AND PLAN: This is a 28-year-old man with 1. Pneumonia, atypical. Continue IV antibiotics. Possible bronchoscopy and BAL pending in a.m. should patient agree. Discussed at length with the patient concerning procedure, all questions answered. Patient verbalized willingness at this time and will consider further thought on the matter. 2. Unintentional weight loss. Confirmatory HIV test pending. 3. Normocytic anemia. Elevated platelet counts. Will follow up in the a.m. 4. Positive human immunodeficiency virus screening. Confirmatory results pending. 5. Sinus tachycardia. Resolved. 6. Anorexia. 7. Elevated liver function tests. 8. Prophylaxis. We will add Protonix and SCDs this day. 9. Disposition. Continue broad-spectrum IV ABX coverage and steroids. Possible pulmonary intervention pending. Supportive O2 continuous. Dictated by: Gian Jay NP Job#: [id number] EV
[2018-07-05] MEDS: LEVOFLOXACIN 750MG/D5W 150ML 150 ML IV SCH (15:30)
[2018-07-05] MEDS: FAMOTIDINE 20 MG/2 ML VIAL IV SCH (16:31)
--- NOTE | 2018-07-05 18:46 | Progress Note ---
DATE: July 05, 2018 SUBJECTIVE: The patient is resting quietly. He is not coughing much now. His pleuritic pain is resolving. No nausea, vomiting or diarrhea. No other systemic complaints reported. In the past 24 hours, he had temperatures up to 96.9 degrees Fahrenheit. OBJECTIVE GENERAL: He is hemodynamically stable. HEENT: He has no gross pallor. No obvious icterus. No oropharyngeal lesions. NECK: His neck is supple. CHEST: Symmetric. Breath sounds are less coarse in the lung li. HEART: Sounds are regular. There is no new murmur. ABDOMEN: Soft. Bowel sounds are present. EXTREMITIES: There is no acute erythema of his extremities. His white count is 8.7, hemoglobin 10.4, platelet count 367,000. His serum creatinine is 0.6. His absolute CD4 count is 8. CD4 percentage is 2.1. His HIV viral load is 139,000. There are no significant positive cultures. IMPRESSION AND PLAN: He has full-blown/advanced AIDS with an absolute CD4 count of 8. His viral load 439,000. He has pneumocystis pneumonia. I suggest to discontinue vancomycin. Continue Levaquin and Bactrim for low. He needs at least 14 days of treatment with Bactrim for acute pneumocystis pneumonia treatment. After that the Bactrim needs to be changed to 1 DS p.o. q. Thursday, Thursday and Thursday. He needs to be on prophylaxis with Azithromycin 1200 mg once a week for MAR prophylaxis. If he is tolerating oral intake, we might be able to change his antibiotic treatment to oral antibiotics with which he can be discharged and referred to any HIV care provider for followup. We will also begin to taper his steroid treatment sometime soon. I have discussed the findings and treatment with the patient at the bedside. I have discussed the patient with Dr. Sanchez. Job#: [id number]
[2018-07-05] MEDS: MELATONIN 5 MG TABLET PO SCH (23:00)
[2018-07-06] VITALS (8 sets, daily range): BP systolic 106–118; BP diastolic 59–71
[2018-07-06] MEDS: SULFAMETHOXAZOLE IV SCH ×3 (04:18→22:30)
[2018-07-06] MEDS: TRIMETHOPRIM IV SCH ×3 (04:18→22:30)
[2018-07-06] MEDS: DEXTROSE 5% IV SCH ×3 (04:18→22:30)
[2018-07-06] MEDS: SODIUM CHLORIDE 0.9% 1000ML 1,000 ML IV SCH ×2 (04:18→17:58)
[2018-07-06 05:21] LABS: HEMATOCRIT 28.5 % (38.2-49.6); HEMOGLOBIN 9.9 g/dL (14.0-18.0); LYMPHOCYTES # (AUTO) 0.3 (1.0-3.2); LYMPHOCYTES % 4.6 % (18.0-39.1); MEAN CORPUSCULAR HEMOGLOBIN 30.7 pg (28-32); MEAN CORPUSCULAR HGB CONC 34.7 g/dL (31-35); MEAN CORPUSCULAR VOLUME 88.5 fL (81-99); MONOCYTES # (AUTO) 0.2 (0.2-0.8); NEUTROPHILS # (AUTO) 5.4 (2.1-6.9); NEUTROPHILS % 90.9 % (38.7-80.0); PLATELET COUNT 355 x10e3/uL (140-360); RED BLOOD COUNT 3.22 x10e6/uL (4.3-5.7); RED CELL DISTRIBUTION WIDTH 12.7 % (11.7-14.4)
[2018-07-06 05:55] LABS: ALANINE AMINOTRANSFERASE 10 IU/L (0-55); ALBUMIN 2.2 g/dL (3.5-5.0); ALBUMIN/GLOBULIN RATIO 0.7 (0.8-2.0); ALKALINE PHOSPHATASE 43 IU/L (40-150); ANION GAP 11.7 mmol/L (8-16); BLOOD UREA NITROGEN 12 mg/dL (7-26); BUN/CREATININE RATIO 18 (6-25); CALCIUM 8.5 mg/dL (8.4-10.2); CARBON DIOXIDE 21 mmol/L (22-29); CHLORIDE 107 mmol/L (98-107); CREATININE, SERUM 0.67 mg/dL (0.72-1.25); EST GLOMERULAR FILTRATION RATE > 60 ML/MIN (60-); GLUCOSE 152 mg/dL (74-118); POTASSIUM 3.7 mmol/L (3.5-5.1); SODIUM 136 mmol/L (136-145)
[2018-07-06] MEDS: METHYLPREDNISOLONE SOD SUCC 125 MG/2ML VIAL IV SCH ×3 (06:09→22:30)
[2018-07-06] MEDS: BENZONATATE 100 MG CAP PO SCH ×3 (06:09→22:30)
--- NOTE | 2018-07-06 07:32 | Progress Note ---
DATE: July 06, 2018 TIME: 7:12 a.m. OVERNIGHT: No events. REVIEW OF SYSTEMS: Denies any dizziness or chest pain. Denies any fever, chills or sweats. Denies any headache, chest pain, leg pain, back pain. PHYSICAL EXAMINATION VITAL SIGNS: Have been reviewed. GENERAL: A tired-appearing man resting in bed. HEENT: Anicteric. CARDIOVASCULAR: Normal S1 and S2. LUNGS: He has reduced breath sounds and some fine crackles are audible. ABDOMEN: Soft, nontender and nondistended. EXTREMITIES: No edema. SKIN: Dry. PSYCHIATRIC: Flat affect. LABS: Reviewed. MEDICATIONS: Reviewed. ASSESSMENT: A 28-year-old man with: 1. Atypical pneumonia. 2. Unintentional weight loss. 3. New diagnosis of human immunodeficiency virus/acquired immunodeficiency syndrome: His CD4 count is 8 and viral load 139,000. 4. Normocytic anemia. 5. Sinus tachycardia. 6. Anorexia. 7. Elevated liver function tests. PLAN 1. Continue antimicrobials. 2. Bronchoscopy is pending. 3. The patient remains on IV steroids and IV Bactrim. 4. Antitussive medications. 5. Follow up bronchoscopy today. Job#: [id number] [facility]ACHO
[2018-07-06] MEDS: FAMOTIDINE 20 MG/2 ML VIAL IV SCH ×2 (09:00→17:00)
--- NOTE | 2018-07-06 13:01 | Progress Note ---
DATE: July 06, 2018 The patient is resting in bed. He is in no acute distress. He is not coughing much currently. No dyspnea at rest. No vomiting. No diarrhea. No adverse medication reaction reported. OBJECTIVE VITAL SIGNS: In the past 24 hours he had temperatures up to 96.3 degrees Fahrenheit. He is hemodynamically stable. HEENT: He has no pallor. There is no icterus. No oropharyngeal lesions. NECK: Supple. CHEST: Symmetric. LUNGS: Breath sounds are coarse in the lung li. HEART: Sounds are regular. There is no new murmur. ABDOMEN: Soft. Bowel sounds are present. EXTREMITIES: There is no acute erythema of his extremities. His white count is 5.9, hemoglobin 9.9, platelet count 355. His serum creatinine is 0.6. There are no new positive culture reports. Serum RPR is negative. IMPRESSION: He has full-blown/advanced acquired immune deficiency syndrome with an absolute CD4 count of 8. His HIV viral load is 139,000. He is on acute treatment for pneumocystis pneumonia. He is afebrile, so from infectious disease point I suggest continue current management. He could be considered for change of treatment to oral antimicrobials with which he can be discharged to continue treatment on an outpatient basis. He needs to be referred to an HIV care provider at the time of discharge. I have discussed details of his diagnosis, clinical findings and plans of treatment with the patient at the bedside. Job#: [id number] [place]
[2018-07-06] MEDS: LEVOFLOXACIN 750MG/D5W 150ML 150 ML IV SCH (15:30)
[2018-07-06] MEDS: MELATONIN 5 MG TABLET PO SCH (22:30)
[2018-07-07] VITALS (8 sets, daily range): BP systolic 103–118; BP diastolic 55–64
[2018-07-07] MEDS: TRIMETHOPRIM IV SCH ×3 (05:14→21:38)
[2018-07-07] MEDS: DEXTROSE 5% IV SCH ×3 (05:14→21:38)
[2018-07-07] MEDS: METHYLPREDNISOLONE SOD SUCC 125 MG/2ML VIAL IV SCH ×3 (05:14→21:38)
[2018-07-07] MEDS: SULFAMETHOXAZOLE IV SCH ×3 (05:14→21:38)
[2018-07-07] MEDS: BENZONATATE 100 MG CAP PO SCH ×3 (05:14→21:38)
[2018-07-07] MEDS: SODIUM CHLORIDE 0.9% 1000ML 1,000 ML IV SCH (07:18)
--- NOTE | 2018-07-07 08:06 | Progress Note ---
DATE: July 07, 2018 TIME: 7:00 a.m. OVERNIGHT: No events. Patient has decided to proceed with bronchoscopy. REVIEW OF SYSTEMS: Denies any dizziness or chest pain. PHYSICAL EXAMINATION VITAL SIGNS: Reviewed. GENERAL: A tired-appearing man resting in bed. HEENT: Anicteric. CARDIOVASCULAR: Normal S1 and S2. LUNGS: He has reduced breath sounds with fine crackles audible. ABDOMEN: Soft, nontender. EXTREMITIES: No edema. SKIN: Dry. PSYCHIATRIC: Flat affect. LABS: Reviewed. MEDICATIONS: Reviewed. ASSESSMENT: A 28-year-old man. 1. Atypical pneumonia. 2. Unintentional weight loss. 3. Newly diagnosed human immunodeficiency virus/acquired immunodeficiency syndrome with CD4 count of 8 and viral load 139,000. 4. Normocytic anemia. 5. Sinus tachycardia. 6. Anorexia. 7. Elevated liver function tests. PLAN 1. Bronchoscopy pending. 2. Continue IV antibiotics and IV steroids. The patient is on IV Bactrim. 3. Continue antitussive medication. His cough is improving. 4. Follow up bronchoscopy. Job#: [id number]
[2018-07-07] MEDS: FAMOTIDINE 20 MG/2 ML VIAL IV SCH ×2 (09:40→17:05)
[2018-07-07] MEDS ORDERED: LIDOCAINE HCL 4% 50 ML BTL ONE (13:48)
[2018-07-07] MEDS ORDERED: EPINEPHRINE HCL INJ 1 MG/ML AMP ONE (13:48)
[2018-07-07] MEDS ORDERED: OXYMETAZOLINE HCL 0.05% NAS 1 SPRAY BTL ONE (13:49)
[2018-07-07] MEDS ORDERED: ACETYLCYSTEINE 200 MG/ML 4ML VIAL ONE (13:49)
[2018-07-07] MEDS ORDERED: LIDOCAINE HCL 2% 30 ML TUBE ONE (13:49)
[2018-07-07] MEDS ORDERED: PROPOFOL IV EMULSION 10 MG/ML 20 ML VIAL ONE (14:39)
[2018-07-07] MEDS ORDERED: SEVOFLURANE INHAL SOLN 250 ML PEN BTL ONE (14:39)
[2018-07-07] MEDS ORDERED: ONDANSETRON HCL INJ 2 MG/ML VIAL ONE (14:39)
[2018-07-07] MEDS ORDERED: LIDOCAINE HCL 2% LOCAL INJ 5 ML SDV VIAL INJ ONE (14:39)
--- NOTE | 2018-07-07 14:53 | Progress Note ---
DATE: July 07, 2018 INFECTIOUS DISEASE PROGRESS NOTE The patient is fairly stable. He is in no acute distress. He offers no new complaints. He is not coughing much currently. No dyspnea at rest. No vomiting, no diarrhea. No adverse medication reaction reported. Maximum temperature in the past 24 hours up to 96.8 degrees Fahrenheit. He is hemodynamically stable. There is no pallor, no icterus, no oropharyngeal lesions. The neck is supple. The chest is symmetric. Breath sounds are less coarse in the lung li. Heart sounds are regular without a new murmur. The abdomen is soft. Bowel sounds are present. No acute erythema of his extremities. His white count is 5.9 from July 06. His creatinine 0.6. There are no new culture or serology reports. IMPRESSION: He has full-blown/advanced acquired immunodeficiency syndrome with an absolute CD4 count of 8. He has most likely Pneumocystis pneumonia with hypoxemia. He is on treatment. I suggest continue current management. I have left prescriptions for antimicrobials that the patient could be discharged on. He should be referred to an HIV care provider at the time of discharge. Job#: [id number] YOSSI
--- NOTE | 2018-07-07 15:14 | Progress Note ---
DATE: July 07, 2018 The patient is breathing well, denying any complaints. All questions about bronchoscopy were answered. He is denying any complaint of chest pain, nausea or vomiting. PHYSICAL EXAMINATION VITAL SIGNS: Temperature 96.1, pulse 70, blood pressure 180/56, respiratory rate 18, O2 sat 95%. CHEST: Clear to auscultation bilaterally. No wheezing. HEART: S1, S2 audible. EXTREMITIES: No pedal edema. LABS: White count of 5.93, hemoglobin 9.9, platelets 355. Chemistry within normal limits. ASSESSMENT AND PLAN 1. Atypical pneumonia versus pneumocystis pneumonia. Infectious disease is following. Antibiotics per ID's recommendations. 2. Human immunodeficiency virus status. 3. Bilateral alveolar infiltrates. Bronchoscopy will be done today. All questions about the procedure were answered, and the patient is agreeable for the procedure. Job#: [id number]
--- NOTE | 2018-07-07 15:27 | Diagnostic Imaging Report ---
PROCEDURE: A single AP view of the chest. COMPARISON: Chest radiograph 07/03/2018, fluoroscopic images 07/07/2018. INDICATIONS: POST BRONCHOSCOPY FINDINGS: Lines/tubes: None. Lungs: The lungs are well inflated. Persistent patchy opacities, some of which appear less conspicuous, more prominent in the left mid lung. Pleura: There is no pleural effusion or pneumothorax. Heart and mediastinum: The heart and the mediastinum are unremarkable. Bones: No acute bony abnormality. IMPRESSION: No pneumothorax. Persistent findings which remain concerning for pneumonia. Dictated by: Remy June M.D. on 07/07/2018 at 15:33 Electronically approved by: Remy June M.D. on 07/07/2018 at 15:33
[2018-07-07] MEDS ORDERED: MIDAZOLAM HCL 2 MG/2 ML VIAL ONE (16:34)
[2018-07-07] MEDS ORDERED: FENTANYL CITRATE/PF 100MCG/2 ML INJ ONE (16:34)
[2018-07-07] MEDS: LEVOFLOXACIN 750MG/D5W 150ML 150 ML IV SCH (17:05)
[2018-07-07] MEDS: MELATONIN 5 MG TABLET PO SCH (21:38)
[2018-07-08] VITALS: BP 103/57
[2018-07-08 04:00] VITALS: BP 107/67
[2018-07-08] MEDS: SODIUM CHLORIDE 0.9% 1000ML 1,000 ML IV SCH ×2 (04:03→09:10)
[2018-07-08] MEDS: SULFAMETHOXAZOLE IV SCH ×2 (04:03→12:50)
[2018-07-08] MEDS: DEXTROSE 5% IV SCH ×2 (04:03→12:50)
[2018-07-08] MEDS: TRIMETHOPRIM IV SCH ×2 (04:03→12:50)
[2018-07-08] MEDS: METHYLPREDNISOLONE SOD SUCC 125 MG/2ML VIAL IV SCH ×2 (05:58→14:06)
[2018-07-08] MEDS: BENZONATATE 100 MG CAP PO SCH ×2 (05:58→14:06)
[2018-07-08] MEDS: FAMOTIDINE 20 MG/2 ML VIAL IV SCH (09:10)
[2018-07-08 09:22] VITALS: BP 112/63
--- NOTE | 2018-07-08 14:40 | Discharge Summary ---
I am covering for Dr. Mohamud Sanchez. FINAL DISCHARGE DIAGNOSES 1. Newly diagnosed human immunodeficiency virus/acquired immunodeficiency syndrome with CD4 count of 8 and a viral load of 139,000. 2. Atypical pneumonia concerning for pneumocystis pneumoniae. 3. Unintentional weight loss. 4. Normocytic anemia. 5. Anorexia. CONSULTANTS: Infectious disease and pulmonary. VITAL SIGNS: Temperature is 96.9, pulse 57, respiratory rate is 20, blood pressure 112/63, pulse ox 97% on room air. LAB FINDINGS: Show white count of 5.9, hemoglobin 9.9, hematocrit 28.5, and platelets of 355,000. Coagulation: PT 13.7, INR 1.1 and PTT 38.9. Chemistry: Sodium 136, potassium 3.7, chloride 107, bicarb 21, anion gap of 11, BUN is 12, creatinine is 0.67. Lactic acid on admission was 12, much improved after normal findings. Calcium is 8.5. Magnesium 1.8. LFTs were normal. TSH is 0.19. Albumin was 2.2. Urinalysis was found to be negative. Immunology: CD4 count was 8. Serology: RPR nonreactive. HIV was reactive. MICROBIOLOGY: Bronchoscopy washings are all pending. Gram stain and sputum cultures showed many wbcs, gram-positive cocci in chains, but no growth. Urine cultures were negative. Blood cultures were negative. Legionella cultures pending. Chest x-ray on admission shows worsening pneumonia with differential includes atypical infection particularly PCP. Chest x-ray on discharge with no pneumothorax. Persistent findings which remain concerning for pneumonia. HOSPITAL COURSE: This is a 28-year-old male with complaints of unintentional weight loss, fatigue in which he was found to have pneumonia. He was found to be positive for HIV screening back in May, now comes in with worsening symptoms. The patient was discharged and was supposed to followup as an outpatient, which he did not. Now, he presented with fever, anorexia, cough, and shortness of breath. He was found to have pneumonia with findings and characteristics of PCP on imaging studies. ID and pulmonary were consulted. Patient was on IV antibiotics. All cultures were found to be negative. Chest x-ray was consistent with PCP. Patient had a status post bronchoscopy performed on July 08, 2018, with washouts, all pending final results. The patient was cleared by pulmonary standpoint with outpatient followup with the ID doctor for the washout cultures. The patient will be discharged on Bactrim DS, as well as azithromycin for prophylaxis. He needs to follow up with ID as an outpatient very closely. Patient was cleared by the consultants for discharge home. On the day of discharge, the patient was feeling well with no other complaints. On the day of discharge, vital signs were stable, labs stable. The patient was seen and evaluated and examined thoroughly on the day of discharge. No other complaints. The patient verbalized understanding and agrees to plan of care. Will follow up accordingly as an outpatient with primary care physician in 1 week and infectious disease in 1 week. He can also follow up with pulmonary in 1-2 weeks. It was very important and it was stressed to the patient to follow with ID very closely in the next 1 week in relation to his HIV status, as well as other medical issues. MEDICATIONS: See med reconciliation form includin. Bactrim DS 1 tab p.o. t.i.d. until July 16, 2018, and then Bactrim DS 1 tab p.o. on Thursday, Thursday and Thursday. 2. Azithromycin 600 mg 2 tablets p.o. daily. 3. Medrol Dosepak as per recommendations by ID. DISPOSITION: Home. CONDITION: Stable. DIET: Heart-healthy. He is to follow with PCP in 1 week. Follow up with infectious disease in 1 week, which is very vital and important, which we stressed to him in urgency to follow up, and also follow up with bronchoscopy washings in which he verbalized understanding. He can follow up with pulmonary in 1-2 weeks. In the event of any worsening symptoms, the patient was to come back to the ED for further evaluation. Discharge summary took greater than 35 minutes. LAMONT CONTRERAS MD Job#: [id number] [facility]O
[2018-07-08] MEDS ORDERED: BACTRIM DS TAB1 EACH PO ×2 (14:46→14:47)
[2018-07-08] MEDS ORDERED: AZITHROMYCIN600 MG PO (14:47)
[2018-07-08] MEDS ORDERED: MEDROL2 MG (14:48)
--- NOTE | 2018-07-08 15:52 | Progress Note ---
DATE: July 08, 2018 The patient is fairly stable. He seemed in no acute distress. He is not coughing much. No dyspnea at rest. No vomiting. No diarrhea. No adverse medication reaction reported. In the past 24 hours, maximum temperature was up to 97.9 degrees Fahrenheit. He is hemodynamically stable. He has no pallor, no icterus. No oropharyngeal lesions. His neck is supple. The chest is symmetric. The lungs are clear. Heart sounds are regular without a new murmur. The abdomen is soft. Bowel sounds are present. There is no acute erythema of the extremities. His white count July 06 was 5.9. His creatinine 0.6. There are no new positive culture reports. He has had bronchoscopy. Cultures are pending. IMPRESSION: He has full blown/advanced acquired immunodeficiency syndrome with an absolute CD4 count of 8. He is on treatment for Pneumocystis pneumonia. He has had bronchoscopy. Reports are pending. I suggest from an infectious disease point, he can be discharged any time now to continue followup as an outpatient. He should find an human immunodeficiency virus care provider as soon as possible to evaluate him for possible antiretroviral therapy. I have written prescriptions for discharge on Bactrim, to complete his acute treatment as well as secondary prophylaxis. I also wrote prescription for azithromycin for Mycobacterium avium-intracellulare prophylaxis. He should also take Medrol Dosepak to continue tapered steroid therapy. I discussed all these in detail with the patient at the bedside including his viral load, his CD4 count, and the need to find a human immunodeficiency virus care provider to continue outpatient care. I have discussed the patient with the primary team. Job#: [id number] ALMA
--- NOTE | 2018-07-16 03:44 | Operative Report ---
DATE OF PROCEDURE: July 07, 2018 PREPROCEDURE DIAGNOSIS: Abnormal chest x-ray and possibility of pneumocystis pneumonia. POSTPROCEDURE DIAGNOSIS: Normal endobronchial airways. OPERATION PERFORMED: Bronchoscopy with bronchioalveolar lavage and transbronchial lung biopsy. DETAILS OF PROCEDURE: Bronchoscope was advanced through the LMA. Both lungs were examined to segmental level. Right upper lobe, middle lobe and lower lobe were examined. No endobronchial lesion was seen, normal-looking airways, thin secretions. No mucopurulence was seen. Left upper lobe, lingula, and lower lobe were examined. No mucopurulence was seen. Thin secretions. No endobronchial lesion. BAL was done from right middle lobe and transbronchial lung biopsy was done from right lower lobe. Samples were sent for gram stain, culture, fungus, AFB, PCP, CMV. Pathology samples were sent as well. COMPLICATIONS: None. POSTPROCEDURE CHEST X-RAY: Pending. ESTIMATED BLOOD LOSS: Less than 5 mL. Job#: [id number] [place]
--- OUTSIDE RECORDS SUMMARY | 2018-09-01 22:59 | XMS REPORT | Continuity of Care Document ---
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 No 06/08/18 4:30pm If yes, is advance directive on file with [facility]? No 06/08/18 4:30pm If not on file with [facility] will patient provide a copy? No 06/08/18 4:30pm Do you have a Directive to Physician? No 06/08/18 1:45pm Do you have a Medical Power of Iron Carrier? No 06/08/18 1:45pm Do you have an out of hospital Do Not Resuscitate Order? No 06/08/18 1:45pm Do you have any special needs we should be aware of? No 06/08/18 1:45pm Do you have a support person here with you today? Yes 06/08/18 1:45pm Did patient receive Notice of Privacy Practices? Yes 06/08/18 1:45pm Did patient receive patient rights and responsibilities? Yes 06/08/18 1:45pm Problems Medical Problem Onset Date Status Fever Unknown Pneumonia, primary atypical Unknown Pneumonitis Unknown Medications Current Home Medications Medication Dose Units Route Directions Days Qty Instructions Start Date Benzonatate (Tessalon Perle) 100 Mg Capsule 100 Mg Oral Three Times A Day 10 Days 06/11/18 Levofloxacin (Levaquin) 500 Mg Tablet 750 Mg Oral Daily 5 Days Prednisone 20 Mg Tab 20 Mg Oral Daily 7 Days 06/11/18 Social History Smoking Status Start Date Stop Date Former smoker Hospital Discharge Instructions No hospital discharge instruction information available. Plan of Care Discharge Date 06/11/18 11:23am Disposition HOME, SELF-CARE Instructions/Education Provided Pneumonia - Bacterial Prescriptions See Medication Section Referrals YASMIN BILLY MD (Internal Medicine) Order Date: 5-7 Days Entered Date: 06/11/2018 7:12am Address: [address] [place] [id number] Additional Instructions/Education REGULAR DIET ACTIVITY TOLERATED Functional Status Query Response Date Recorded Assistive Devices None June 08, 2018 4:30pm Ambulation Ability Independent June 08, 2018 4:30pm Toileting Ability Independent June 08, 2018 6:39pm Allergies, Adverse Reactions, Alerts Allergen Type Severity Reaction Status Last Updated Amoxicillin Allergy Intermediate RASH Active 06/08/18 Immunizations No immunization information available. Vital Signs Acute Vital Signs Vital Response Date/Time Temperature (Fahrenheit) 96.2 degrees F (97.6 - 99.5) 06/11/2018 8:32am Pulse Pulse Rate (adult) 90 bpm (60 - 90) 06/11/2018 10:22am Respiratory Rate 20 bpm (12 - 24) 06/11/2018 10:22am Blood Pressure 115/72 mm Hg 06/11/2018 8:32am Height 5 ft 9 in 06/08/2018 12:26pm Weight 141 lb 06/08/2018 12:26pm Body Mass Index 20.8 kg/m^2 06/08/2018 4:30pm Results Laboratory Results Test Name Result Units Flags Reference Collection Date/Time Result Date/ Time Comments White Blood Count 5.40 x10e3/uL 4.8-10.8 06/08/2018 12:33pm 06/08/2018 1:01pm Red Blood Count 4.18 x10e6/uL L 4.3-5.7 06/08/2018 12:33pm 06/08/2018 1: 01pm Hemoglobin 13.2 g/dL L 14.0-18.0 06/08/2018 12:33pm 06/08/2018 1:01pm Hematocrit 37.0 % L 38.2-49.6 06/08/2018 12:33pm 06/08/2018 1:01pm Mean Corpuscular Volume 88.5 fL 81-99 06/08/2018 12:33pm 06/08/2018 1: 01pm Mean Corpuscular Hemoglobin 31.6 pg 28-32 06/08/2018 12:33pm 2017 1:01pm Mean Corpuscular Hemoglobin Concent 35.7 g/dL H 31-35 06/08/2018 12:33pm 06/08/2018 1:01pm Red Cell Distribution Width 11.2 % L 11.7-14.4 06/08/2018 12:33pm 2017 1:01pm Platelet Count 223 x10e3/uL 140-360 06/08/2018 12:33pm 06/08/2018 1: 01pm Neutrophils (%) (Auto) 72.4 % 38.7-80.0 06/08/2018 12:33pm 06/08/2018 1 :01pm Lymphocytes (%) (Auto) 17.0 % L 18.0-39.1 06/08/2018 12:33pm 06/08/2018 1:01pm Monocytes (%) (Auto) 8.7 % 4.4-11.3 06/08/2018 12:33pm 06/08/2018 1: 01pm Eosinophils (%) (Auto) 0.9 % 0.0-6.0 06/08/2018 12:33pm 06/08/2018 1: 01pm Basophils (%) (Auto) 0.6 % 0.0-1.0 06/08/2018 12:33pm 06/08/2018 1: 01pm IM GRANULOCYTES % 0.4 % 0.0-1.0 06/08/2018 12:33pm 06/08/2018 1:01pm Neutrophils # (Auto) 3.9 2.1-6.9 06/08/2018 12:33pm 06/08/2018 1: 01pm Lymphocytes # (Auto) 0.9 L 1.0-3.2 06/08/2018 12:33pm 06/08/2018 1: 01pm Monocytes # (Auto) 0.5 0.2-0.8 06/08/2018 12:33pm 06/08/2018 1:01pm Eosinophils # (Auto) 0.1 0.0-0.4 06/08/2018 12:33pm 06/08/2018 1: 01pm Basophils # (Auto) 0.0 0.0-0.1 06/08/2018 12:33pm 06/08/2018 1:01pm Absolute Immature Granulocyte (auto 0.02 x10e3/uL 0-0.1 06/08/2018 12: 33pm 06/08/2018 1:01pm Erythrocyte Sedimentation Rate 86 mm/hr H 0-13 06/08/2018 8:53pm 2017 10:03pm Urine Color ORANGE YELLOW 06/08/2018 12:33pm 06/08/2018 1:07pm Urine Clarity CLEAR CLEAR 06/08/2018 12:33pm 06/08/2018 1:07pm Urine Specific Peterson 1.020 1.010-1.025 06/08/2018 12:33pm 2017 1:07pm Urine pH 6 5 - 7 06/08/2018 12:33pm 06/08/2018 1:07pm Urine Leukocyte Esterase NEGATIVE NEGATIVE 06/08/2018 12:33pm 2017 1:07pm Urine Nitrite NEGATIVE NEGATIVE 06/08/2018 12:33pm 06/08/2018 1:07pm Urine Protein 1+ H NEGATIVE 06/08/2018 12:33pm 06/08/2018 1:07pm Urine Glucose (UA) NEGATIVE NEGATIVE 06/08/2018 12:33pm 06/08/2018 1: 07pm Urine Ketones 1+ H NEGATIVE 06/08/2018 12:33pm 06/08/2018 1:07pm Urine Urobilinogen 4 mg/dL H 0.2 - 1 06/08/2018 12:33pm 06/08/2018 1: 07pm Urine Bilirubin 1+ H NEGATIVE 06/08/2018 12:33pm 06/08/2018 1:07pm Confirmatory test currently unavailable. False positive results may occur. Urine Blood NEGATIVE NEGATIVE 06/08/2018 12:33pm 06/08/2018 1:07pm Urine WBC 6-10 /HPF H 0-5 06/08/2018 12:33pm 06/08/2018 1:36pm Urine RBC 6-10 /HPF H 0-5 06/08/2018 12:33pm 06/08/2018 1:36pm Urine Bacteria FEW /HPF NONE 06/08/2018 12:3306/08/2018 1:36pm Urine Epithelial Cells FEW /LPF NONE 06/08/2018 12:3306/08/2018 1: 36pm Sodium Level 136 mmol/L 136-145 06/08/2018 12:33pm 06/08/2018 1:26pm Potassium Level 3.9 mmol/L 3.5-5.1 06/08/2018 12:3306/08/2018 1: 26pm Chloride Level 101 mmol/L 98-107 06/08/2018 12:3306/08/2018 1:26pm Carbon Dioxide Level 26 mmol/L 22-29 06/08/2018 12:33pm 06/08/2018 1: 26pm Anion Gap 12.9 mmol/L 8-16 06/08/2018 12:3306/08/2018 1:26pm Blood Urea Nitrogen 10 mg/dL 7-06/08/2018 12:33pm 06/08/2018 1:26pm Creatinine 0.82 mg/dL 0.72-1.25 06/08/2018 12:3306/08/2018 1:26pm BUN/Creatinine Ratio 12 6-06/08/2018 12:3306/08/2018 1:26pm Estimat Glomerular Filtration Rate > 60 ML/MIN 60- 06/08/2018 12:06/08/2018 1:26pm Ranges were taken from the National Kidney Disease Education Program and the National Kid[employer] Foundation literature. Reference ranges: 60 or greater: Normal 16-59 (for 3 consecutive months): Chronic kidney disease 15 or less: Kidney failure Glucose Level 89 mg/dL 74-118 06/08/2018 12:33pm 06/08/2018 1:26pm Calcium Level 9.2 mg/dL 8.4-10.2 06/08/2018 12:33pm 06/08/2018 1:26pm Lactic Acid Level 12.4 MG/DL 4.5-19.8 06/08/2018 12:3306/08/2018 1: 26pm Total Bilirubin 2.0 mg/dL H 0.2-1.2 06/08/2018 12:33pm 06/08/2018 1: 26pm Aspartate Amino Transf (AST/SGOT) 53 IU/L H 5-34 06/08/2018 12:33pm 08/2018 1:26pm Alanine Aminotransferase (ALT/SGPT) 30 IU/L 0-55 06/08/2018 12:33pm 08/2018 1:26pm Total Protein 8.5 g/dL H 6.5-8.1 06/08/2018 12:33pm 06/08/2018 1:26pm Albumin 3.4 g/dL L 3.5-5.0 06/08/2018 12:33pm 06/08/2018 1:26pm Globulin 5.1 g/dL H 2.3-3.5 06/08/2018 12:33pm 06/08/2018 1:26pm Albumin/Globulin Ratio 0.7 L 0.8-2.0 06/08/2018 12:33pm 06/08/2018 1: 26pm Alkaline Phosphatase 47 IU/L 40-150 06/08/2018 12:33pm 06/08/2018 1: 26pm Thyroid Stimulating Hormone (TSH) 0.253 uIU/mL L 0.350-4.940 06/08/2018 12:33pm 06/08/2018 9:00pm Monoscreen NEGATIVE NEGATIVE 06/08/2018 12:33pm 06/08/2018 1:33pm HIV (1&2) Antibody REACTIVE H NONREACTIVE 06/08/2018 12:33pm 08/2018 8:56pm E-mail result to Dina Flynn @ [email or web address] Results e-mailed at 2055 on 06/08/18 by KEL YATES. 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
== END 2018-07-08 15:20 | disposition home or self-care (01) | DRG 976 ==
LOC: ER 22:08 → ERHOLD 07-02 00:35 → MED/SURG2 07-02 01:18
PROVIDERS: ADMIT Internal Medicine; ATTEND Internal Medicine
PROC: 0BBF8ZX Excision of Right Lower Lung Lobe, Via Natural or Artificial Opening Endoscopic, Diagnostic (ICD-10-PCS; principal; 2018-07-07 14:10)
PROC: 0B9D8ZX Drainage of Right Middle Lung Lobe, Via Natural or Artificial Opening Endoscopic, Diagnostic (ICD-10-PCS; 2018-07-07 14:10)
DX: B20 Human immunodeficiency virus [HIV] disease (principal); B59 Pneumocystosis; D64.9 Anemia, unspecified; R63.0 Anorexia; R00.0 Tachycardia, unspecified; R63.4 Abnormal weight loss; Z83.3 Family history of diabetes mellitus; Z84.89 Family history of other specified conditions; R79.89 Other specified abnormal findings of blood chemistry; R91.8 Other nonspecific abnormal finding of lung field; Z88.0 Allergy status to penicillin; G47.00 Insomnia, unspecified
CPT/HCPCS: 31625; 36415; 36600; 71045; 71046; 76001; 80053; 80202; 81001; 82550; 82553; 82805; 83605; 83735; 84443; 84484; 85025; 85610; 85730; 86361; 86592; 87040; 87070; 87086; 87102; 87109; 87116; 87205; 87206; 87335; 87536; 88112; 88305; 93005; 94640; 96360; 96361; 96365; 96374; 99284; J0171; J0456; J0696; J2001; J2250; J2270; J2405; J2930; J3370; J7030; J7050; J7060

== ENCOUNTER 2018-10-21 10:57 | Emergency (ER) | payer SELFPAY ==
[~2018-10-21] VITALS: Ht 175.3 cm; Wt 79.4 kg
[~2018-10-21 10:57] MED LIST changes: +AZITHROMYCIN600 MG PO; +BACTRIM DS TAB1 EACH PO; +MEDROL2 MG
--- OUTSIDE RECORDS SUMMARY | 2018-10-21 11:00 | XMS REPORT ---
Author Author Admin, [place] [place] Organization [facility] Address [address] [place] [address] Phone Allergies, Adverse Reactions, Alerts Allergy Name Reaction Description Start Date Severity Status Provider AMOXICILLIN Rash all over body Severe Active Estelita Simon MD Conditions or Problems Problem Name Problem Code Onset Date Status Entry Date Provider Comment Standard Description Annotate Abnormal LFT's 794.8 Active Estelita Simon MD Nonspecific abnormal results of function study of liver Health care maintenance V70.0 Active Estelita Simon MD Routine general medical examination at a health care facility Overweight Active Esetlita Simon MD Overweight HIV infection 042 Active Lisa Hurtado MA Human immunodeficiency virus [HIV] disease Pre-procedural laboratory examination ICD-V72.63 Inactive Estelita Simon MD Pre-procedural laboratory examination V72.63 Resolved Estelita Simon MD Pre-procedural laboratory examination Medication List Medication Instructions Start Date Stop Date Generic Name NDC Status Provider Patient Instruction AZITHROMYCIN 600 MG ORAL TABLET 1 tab by mouth AZITHROMYCIN 09407124263 Active Estelita Simon MD Active BACTRIM DS 800-160 MG ORAL TABLET 1 tab by mouth ONCE A DAY SULFAMETHOXAZOLE-TRIMETHOPRIM 04860299030 Active Estelita Simon MD Active BIKTARVY 50-200-25 MG ORAL TABLET Take 1 tab by mouth daily [id number] 41797391101 Active Estelita Simon MD Active AZITHROMYCIN 600 MG ORAL TABLET 1 tab By Mouth Q. Thursday/ AZITHROMYCIN 600 MG ORAL TABLET 428645 AZITHROMYCIN Inactive BACTRIM DS 800-160 MG ORAL TABLET 1 tab by mouth daily BACTRIM DS 800-160 MG ORAL TABLET [id number] TRIMETHOPRIM-SULFAMETHOXAZOLE Inactive BIKTARVY 50-200-25 MG ORAL TABLET Take 1 tab by mouth daily BIKTARVY 50-200-25 MG ORAL TABLET [id number] Inactive BACTRIM DS 800-160 MG ORAL TABLET 1 tab by mouth ONCE A DAY BACTRIM DS 800-160 MG ORAL TABLET [id number] SULFAMETHOXAZOLE-TRIMETHOPRIM Inactive BIKTARVY 50-200-25 MG ORAL TABLET Take 1 tab by mouth daily BIKTARVY 50-200-25 MG ORAL TABLET [id number] Inactive AZITHROMYCIN 600 MG ORAL TABLET 1 tab By Mouth Q. Thursday/ AZITHROMYCIN 88313964132 No Longer Active Estelita Simon MD Active BACTRIM DS 800-160 MG ORAL TABLET 1 tab by mouth daily TRIMETHOPRIM-SULFAMETHOXAZOLE 74904096701 No Longer Active Estelita Simon MD Active BIKTARVY 50-200-25 MG ORAL TABLET Take 1 tab by mouth daily [id number]-[id number] 52955021935 No Longer Active Estelita Simon MD Active BACTRIM DS 800-160 MG ORAL TABLET 1 tab by mouth ONCE A DAY SULFAMETHOXAZOLE-TRIMETHOPRIM 91435511537 No Longer Active Estelita Simon MD Active BIKTARVY 50-200-25 MG ORAL TABLET Take 1 tab by mouth daily [id number]-SGZTINX 67221638744 No Longer Active Estelita Simon MD Active Immunizations Vaccine Administration Date Value Standard Description influenza immunization (Flu Vax) has been administered given influenza virus vaccine, unspecified formulation Human Papillomavirus vaccine (Gardasil) #2, (HPV #2) given human papilloma virus vaccine, quadrivalent Human Papillomavirus vaccine (Gardasil) #2, (HPV #2) Drug Name Gardasil 9 human papilloma virus vaccine, quadrivalent meningococcal polysaccharide conjugate vaccine (MCV4) #2 given meningococcal vaccine, unspecified formulation pneumococcal immunization administered given pneumococcal polysaccharide vaccine, 23 valent Human Papilloma Virus Vaccine (Gardasil) (HPV 1) Administration Date given human papilloma virus vaccine, quadrivalent meningococcal polysaccharide conjugate vaccine (MCV4) given meningococcal vaccine, unspecified formulation PEDIATRIC PNEUMOCOCCAL VACCINE ([id number]) #1 given pneumococcal conjugate vaccine, 13 valent Vital Signs Date Name Value Unit Range Description blood pressure, diastolic 84 mm[Hg] BP wallis blood pressure, systolic 126 mm[Hg] BP sys height E&M 67 [in_us] Bdy height pulse rate E&M 99 /min Heart rate respiratory rate E&M 12 /min Resp rate temperature E&M 98.2 [degF] Body temperature weight E&M 185 [lb_av] Weight Measured blood pressure, diastolic 85 mm[Hg] BP wallis blood pressure, systolic 127 mm[Hg] BP sys height E&M 67 [in_us] Bdy height pulse rate E&M 76 /min Heart rate respiratory rate E&M 12 /min Resp rate temperature E&M 98.4 [degF] Body temperature weight E&M 173 [lb_av] Weight Measured blood pressure, diastolic 84 mm[Hg] BP wallis blood pressure, systolic 129 mm[Hg] BP sys height E&M 67 [in_us] Bdy height pulse rate E&M 92 /min Heart rate respiratory rate E&M 12 /min Resp rate temperature E&M 98 [degF] Body temperature weight E&M 160 [lb_av] Weight Measured Diagnostic Results Date Name Value Unit Range Description Lab Report: Comp. Metabolic Panel (14), HCV RNA by PCR, Qn Rfx Meseret, HBs ... - Chemistry hepatitis B surface antigen Negative Negative chloride, serum 105 mmol/L 96-106 Lab Report: CD4/CD8 Ratio Profile, Comp. Metabolic Panel (14), RNA, Real ... - Microbiology hepatitis A antibody, total Positive Negative Lab Report: Comp. Metabolic Panel (14), HCV RNA by PCR, Qn Rfx Meseret, HBs ... - Chemistry urea nitrogen, blood 12 mg/dL 6-20 Lab Report: GenoSure PRIme(R), Measles/Mumps/Rubella Immunity, Tetanus A ... - Chemistry tetanus antibody IGG 0.79 [iU]/mL <0.10 Lab Report: CD4/CD8 Ratio Profile, Comp. Metabolic Panel (14), RNA, Real ... - Serology HIV-1/HIV-2 Ab, serum Positive Negative human leukocyte antigen B57 Negative Lab Report: CD4/CD8 Ratio Profile, Comp. Metabolic Panel (14), RNA, Real ... - Hematology mean corpuscular hemoglobin concentration, RBC 33.9 G/DL % 31.5-35.7 erythrocyte (RBC) count 4.81 X10E6/UL 10*6/mm3 4.14-5.80 Lab Report: CD4/CD8 Ratio Profile, Comp. Metabolic Panel (14), RNA, Real ... - Serology hepatitis C antibody, serum <0.1 0.0-0.9 Lab Report: CD4/CD8 Ratio Profile, Comp. Metabolic Panel (14), RNA, Real ... - Chemistry absolute CD8 186 403-753 3972/10/26 Absolute Neutrophils 2.4 X10E3/UL 10*3/uL 1.4-7.0 Lab Report: Comp. Metabolic Panel (14), HCV RNA by PCR, Qn Rfx Meseret, HBs ... - Chemistry urea nitrogen/creatinine ratio, serum 14 9-20 Lab Report: Comp. Metabolic Panel (14), HCV RNA by PCR, Qn Rfx Meseret, HBs ... - Serology Hepatitis C virus (HCV) RNA, PCR, quantitative HCV Not Detected IU/mL [iU]/mL Lab Report: CD4/CD8 Ratio Profile, Comp. Metabolic Panel (14), RNA, Real ... 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 Metabolic Panel (14), RNA, Real ... - Hematology monocytes as percent of blood leukocytes 20 % Not Estab. Lab Report: Comp. Metabolic Panel (14), HCV RNA by PCR, Qn Rfx Meseret, HBs ... - Chemistry creatinine, serum 0.83 mg/dL 0.76-1.27 albumin/globulin ratio, serum 1.7 1.2-2.2 bilirubin, serum, total 0.6 mg/dL 0.0-1.2 Lab Report: CD4/CD8 Ratio Profile, Comp. Metabolic Panel (14), RNA, Real ... - Hematology Eosinophil Absolute Count 0.1 X10E3/UL 10*3/uL 0.0-0.4 Lab Report: Chlamydia/GC Amplification - Lab chlamydia DNA probe Negative Negative Lab Report: Comp. Metabolic Panel (14), HCV RNA by PCR, Qn Rfx Meseret, HBs ... - Chemistry aspartate aminotransferase (SGOT), serum 84 U/L 0-40 Lab Report: CD4/CD8 Ratio Profile, Comp. Metabolic Panel (14), RNA, Real ... - Hematology red blood cell distribution width 14.6 % 12.3-15.4 leukocyte count, blood 3.7 X10E3/UL 10*3/mm3 3.4-10.8 Lab Report: Comp. Metabolic Panel (14), HCV RNA by PCR, Qn Rfx Meseret, HBs ... - Chemistry potassium, serum 4.1 mmol/L 3.5-5.2 albumin, serum 4.7 g/dL 3.5-5.5 Lab Report: Ct/GC DIONICIO, Pharyngeal - Microbiology Neisseria gonorrhoeae, throat culture Negative Negative Lab Report: CD4/CD8 Ratio Profile, Comp. Metabolic Panel (14), RNA, Real ... - Chemistry immature granulocytes, percentage of total cells, blood 0 % Not Estab. Lab Report: CD4/CD8 Ratio Profile, Comp. Metabolic Panel (14), RNA, Real ... - Hematology lymphocyte count, blood, automated 0.4 X10E3/UL 10*3/mm3 0.7-3.1 hematocrit, blood 46.0 % 37.5-51.0 Lab Report: Chlamydia/GC Amplification - Microbiology Neisseria gonorrhoeae DNA probe Negative Negative Lab Report: Comp. Metabolic Panel (14), HCV RNA by PCR, Qn Rfx Meseret, HBs ... - Chemistry sodium, serum 144 mmol/L 134-144 Lab Report: CD4/CD8 Ratio Profile, Comp. Metabolic Panel (14), RNA, Real ... - Serology toxoplasma gondii antibody, IgG <3.0 0.0-7.1 Lab Report: CD4/CD8 Ratio Profile, Comp. Metabolic Panel (14), RNA, Real ... - Hematology neutrophils as percent of blood leukocytes 66 % Not Estab. basophils as percent of blood leukocytes 0 % Not Estab. Lab Report: CD4/CD8 Ratio Profile, Comp. Metabolic Panel (14), RNA, Real ... - Serology HIV-1RNA, serum, by PCR, quantitative 87124 {Copies}/mL Lab Report: CD4/CD8 Ratio Profile, Comp. Metabolic Panel (14), RNA, Real ... - Toxicology HIV-2 antibodies, western blot Negative Negative Lab Report: CD4/CD8 Ratio Profile, Comp. Metabolic Panel (14), RNA, Real ... - Serology rapid plasma reagin antibody, serum Non Reactive Non Reactive Lab Report: GenoSure PRIme(R), Measles/Mumps/Rubella Immunity, Tetanus A ... - Serology rubella antibody, serum, IgG 1.13 Immune >0.99 Lab Report: CD4/CD8 Ratio Profile, Comp. Metabolic Panel (14), RNA, Real ... - Chemistry CD4/CD8 ratio 0.14 0.92-3.72 Lab Report: Comp. Metabolic Panel (14), HCV RNA by PCR, Qn Rfx Meseret, HBs ... - Chemistry carbon dioxide, venous blood 22 mmol/L 20-29 Lab Report: CD4/CD8 Ratio Profile, Comp. Metabolic Panel (14), RNA, Real ... - Serology hepatitis B core antibody, total Negative Negative Lab Report: Comp. Metabolic Panel (14), HCV RNA by PCR, Qn Rfx Meseret, HBs ... - Chemistry calcium, serum 9.6 mg/dL 8.7-10.2 alanine aminotransferase (SGPT), serum 108 U/L 0-44 Lab Report: CD4/CD8 Ratio Profile, Comp. Metabolic Panel (14), RNA, Real ... - Hematology mean corpuscular hemoglobin, RBC 32.4 pg 26.6-33.0 Lab Report: Comp. Metabolic Panel (14), HCV RNA by PCR, Qn Rfx Meseret, HBs ... - Chemistry protein, total, serum 7.4 g/dL 6.0-8.5 alkaline phosphatase, serum 93 U/L 39-117 Lab Report: CD4/CD8 Ratio Profile, Comp. Metabolic Panel (14), RNA, Real ... - Hematology T-helper cells (CD4) as percent of blood lymphocytes 6.5 % 30.8-58.5 hemoglobin, blood 15.6 g/dL 13.0-17.7 T-suppressor cells (CD8) as percent of blood lymphocytes 46.6 % 12.0-35.5 lymphocytes as percent of blood leukocytes 11 % Not Estab. Lab Report: Comp. Metabolic Panel (14), HCV RNA by PCR, Qn Rfx Meseret, HBs ... - Genetics/fertility eGFR if 140 mL/min/1.73m2 >59 Lab Report: CD4/CD8 Ratio Profile, Comp. Metabolic Panel (14), RNA, Real ... - Hematology basophil count, absolute 0.0 x10E3/uL 0.0-0.2 Lab Report: Comp. Metabolic Panel (14), HCV RNA by PCR, Qn Rfx Meseret, HBs ... - Chemistry globulin, serum 2.7 1.5-4.5 Estimated Glomerular Filtration Rate (calc) 121 mL/min/1.73m2 >59 Lab Report: CD4/CD8 Ratio Profile, Comp. Metabolic Panel (14), RNA, Real ... - Serology hepatitis B surface antibody Reactive Lab Report: CD4/CD8 Ratio Profile, Comp. Metabolic Panel (14), RNA, Real ... - Hematology eosinophils as percent of blood leukocytes 3 % Not Estab. Lab Report: Comp. Metabolic Panel (14), HCV RNA by PCR, Qn Rfx Meseret, HBs ... - Chemistry blood glucose, random 99 mg/dL 65-99 Lab Report: CD4/CD8 Ratio Profile, Comp. Metabolic Panel (14), RNA, Real ... - Hematology monocyte count, blood, automated 0.7 X10E3/UL 10*3/uL 0.1-0.9 T-helper cells (CD4) count 26 /UL uL [phone] platelet count 214 X10E3/UL 10*3/mm3 150-379 Encounters Date Encounter Provider Code Facility 10:49:26 DIRECTOR OF PROGRAM MANAGEMENT Est Patient Exp Problem - 28718 Estelita Simon MD CPT-27056 [facility] 09:59:13 CDT Est Patient Nurse - Only Visit - 97569 Eufemia Miranda RN CPT-57319 [facility] 16:30:55 CDT Est Patient Exp Problem - 64388 Estelita Simon MD CPT-87264 [facility] 14:47:06 CDT New Patient Detailed - 11214 Estelita Simon MD CPT-76474 [facility] Procedures Code Procedure Name Date Entry Date Standard Description CPT-51025 INFLUENZA VACCINE QUADRIVALENT 3 YRS PLUS IM 10:49:32 DIRECTOR OF PROGRAM MANAGEMENT CPT-80937 Admin of Vaccine - Injection - 1 10:49:32 DIRECTOR OF PROGRAM MANAGEMENT CPT-64032 Meningococcal Conj Tetravalent (MCV4) 09:59:13 CDT CPT-60208 Pneumovax Vaccine PPSV23 09:59:13 CDT CPT-43188 Gardasil - HPV 09:59:13 CDT CPT-91072 Admin of Vaccine - Injection - Each Add'l 09:59:13 CDT CPT-00887 Admin of Vaccine - Injection - 1 09:59:13 CDT CPT-49784 Meningococcal Conj Tetravalent (MCV4) 14:47:20 CDT CPT-48034 Prevnar (PCV13) IM 14:47:20 CDT CPT-55540 Gardasil - HPV 14:47:20 CDT CPT-96613 Admin of Vaccine - Injection - Each Add'l 14:47:19 CDT CPT-25274 Admin of Vaccine - Injection - 1 14:47:19 CDT CPT-96049 Handling of specimen for transfer 14:49:11 CDT CPT-68660 Venipuncture 14:49:11 CDT
[2018-10-21] MEDS ORDERED: HYDROCODONE/APAP 10MG-325MG TAB PO ONE (11:30)
[2018-10-21 12:18] VITALS: BP 121/87
== END 2018-10-21 12:21 | disposition home or self-care (01) ==
LOC: ER 10:57
DX: B02.9 Zoster without complications (principal); B20 Human immunodeficiency virus [HIV] disease
CPT/HCPCS: 99283

== ENCOUNTER 2021-09-25 21:53 | Emergency (ER) | payer SELFPAY ==
[~2021-09-25] VITALS: Ht 175.3 cm; Wt 79.4 kg
[2021-09-25] MEDS ORDERED: IBUPROFEN 600 MG TAB PO STA (22:17)
[2021-09-25] MEDS ORDERED: IBUPROFEN 200 MG TAB ONE (22:27)
[2021-09-25] MEDS ORDERED: ACYCLOVIR800 MG PO (22:28)
[2021-09-25] MEDS ORDERED: NEURONTIN100 MG PO (22:29)
== END 2021-09-25 23:56 | disposition home or self-care (01) ==
LOC: ER 22:26
DX: B02.9 Zoster without complications (principal); B20 Human immunodeficiency virus [HIV] disease; Z86.16 Personal history of COVID-19
CPT/HCPCS: 71046; 99283

== ENCOUNTER 2022-06-01 15:44 | Emergency (ER) | payer SELFPAY ==
[~2022-06-01] VITALS: Ht 175.3 cm; Wt 79.4 kg
[~2022-06-01 15:44] MED LIST changes: +ACYCLOVIR800 MG PO; +NEURONTIN100 MG PO
[2022-06-01] MEDS ORDERED: FLUCONAZOLE100 MG PO (16:06)
== END 2022-06-01 18:08 | disposition home or self-care (01) ==
LOC: ER 16:02
DX: J31.2 Chronic pharyngitis (principal); R10.13 Epigastric pain; Z21 Asymptomatic human immunodeficiency virus [HIV] infection status
CPT/HCPCS: 99283

== ENCOUNTER 2022-09-03 12:05 | Emergency (ER) | payer SELFPAY ==
[~2022-09-03] VITALS: Ht 175.3 cm; Wt 67.4 kg
[~2022-09-03 12:05] MED LIST changes: +FLUCONAZOLE100 MG PO
[2022-09-03] MEDS ORDERED: ACETAMINOPHEN 325 MG TAB PO NR (12:15)
[2022-09-03] MEDS ORDERED: SODIUM CHLORIDE 0.9% 1000ML 1,000 ML IV SCH (12:15)
[2022-09-03 12:29] LABS: EOSINOPHILS % 0.6 % (0.0-6.0); HEMATOCRIT 30.5 % (38.2-49.6); LYMPHOCYTES # (AUTO) 0.6 (1.0-3.2); LYMPHOCYTES % 12.6 % (18.0-39.1); MEAN CORPUSCULAR HGB CONC 32.8 g/dL (31-35); MEAN CORPUSCULAR VOLUME 94.4 fL (81-99); MONOCYTES # (AUTO) 0.5 (0.2-0.8); NEUTROPHILS # (AUTO) 3.7 (2.1-6.9); NEUTROPHILS % 75.4 % (38.7-80.0); PLATELET COUNT 172 x10e3/uL (140-360); RED BLOOD COUNT 3.23 x10e6/uL (4.3-5.7)
[2022-09-03] MEDS ORDERED: CEFTRIAXONE 1 GM VIAL IM NR (12:30)
[2022-09-03] MEDS ORDERED: ASPIRIN 81 MG CHEW TAB PO ONE (12:30)
[2022-09-03 12:48] LABS: MAGNESIUM 3.2 MG/DL (1.3-2.1)
[2022-09-03 12:49] LABS: ANION GAP 15.2 mmol/L (8-16); BLOOD UREA NITROGEN 6 mg/dL (7-26); BUN/CREATININE RATIO 8 (6-25); CALCIUM 8.8 mg/dL (8.4-10.2); CARBON DIOXIDE 22 mmol/L (22-29); CHLORIDE 108 mmol/L (98-107); CREATINE KINASE 81 IU/L (30-200); CREATININE, SERUM 0.71 mg/dL (0.72-1.25); GLUCOSE 96 mg/dL (74-118); POTASSIUM 3.2 mmol/L (3.5-5.1); SODIUM 142 mmol/L (136-145)
[2022-09-03 12:52] LABS: STREPTOCOCCUS GRP A ANTIGEN NEGATIVE (NEGATIVE)
[2022-09-03] MEDS ORDERED: LIDOCAINE 1% 10 ML MULTIDOSE VIAL IJ ONE (12:57)
[2022-09-03 13:03] LABS: ALBUMIN 3.4 g/dL (3.5-5.0); BILIRUBIN,DIRECT 0.4 mg/dL (0.0-0.5)
[2022-09-03 13:09] LABS: THYROID STIMULATING HORMONE 0.489 uIU/mL (0.350-4.940)
[2022-09-03 13:45] LABS: CLARITY,URINE CLEAR (CLEAR); COLOR,URINE AMBER (YELLOW); KETONES,URINE NEGATIVE (NEGATIVE); LEUKOCYTE ESTERASE ,URINE NEGATIVE (NEGATIVE); NITRITE,URINE NEGATIVE (NEGATIVE); PROTEIN,URINE DIPSTICK TRACE (NEGATIVE); URINE UROBILINOGEN 1 mg/dL (0.2 - 1)
[2022-09-03] MEDS ORDERED: POTASSIUM CHLORIDE 10MEQ EA PO ONE (13:45)
[2022-09-03 13:58] LABS: RBC,URINE 0-5 /HPF (0-5); WBC,URINE (MAN) 0-5 /HPF (0-5)
[2022-09-03 13:59] LABS: EPITHELIAL CELLS,URINE RARE /LPF
[2022-09-03] MEDS ORDERED: BACTRIM DS TAB1 EACH PO ×3 (14:08→14:36)
[2022-09-03 14:47] VITALS: BP 111/89
== END 2022-09-03 14:48 | disposition home or self-care (01) ==
LOC: ER 12:11
DX: R50.9 Fever, unspecified (principal); B20 Human immunodeficiency virus [HIV] disease; K21.9 Gastro-esophageal reflux disease without esophagitis
CPT/HCPCS: 0223U; 36415; 71045; 80048; 80076; 81001; 82550; 82553; 83518; 83605; 83690; 83735; 84443; 84484; 85025; 87040; 87070; 93005; 99284; J0456; J0696; J7030; J7050

== ENCOUNTER 2023-12-08 05:22 | Inpatient (IN) | payer OTHER ==
[~2023-12-08] VITALS: Ht 170.2 cm; Wt 55.3 kg
[~2023-12-08 05:22] MED LIST changes: +ACIDOPHILUS1 EAC1 PO; +AZITHROMYCIN500 MG PO; +CEPHALEXIN500 MG PO; +CIPRO500 MG PO; +CIPROFLOXACIN500 MG PO; +DICYCLOMINE HCL20 MG PO; +ETHAMBUTOL HCL400 MG PO; +RIFABUTIN150 MG PO; +TIVICAY50 MG PO; +TRUVADA 200 MG1 EACH PO; +ULTRAM 50MG50 MG PO
[2023-12-08] MEDS ORDERED: KETOROLAC TROMETHAMINE 30 MG/ML VIAL IV STA (05:40)
[2023-12-08] MEDS ORDERED: ONDANSETRON HCL INJ 2MG/ML 2ML 2 MG/ML VIAL IV STA ×2 (05:40→06:14)
[2023-12-08] MEDS ORDERED: ACETAMINOPHEN 325 MG TAB PO ONE (05:45)
[2023-12-08] MEDS ORDERED: SODIUM CHLORIDE 0.9% 1000ML 1,000 ML IV ONE (05:45)
[2023-12-08 05:51] LABS: BASOPHILS % 0.3 % (0.0-1.0); EOSINOPHILS % 0.4 % (0.0-6.0); HEMATOCRIT 28.8 % (38.2-49.6); HEMOGLOBIN 8.5 g/dL (14.0-18.0); LYMPHOCYTES # (AUTO) 0.6 (1.0-3.2); LYMPHOCYTES % 7.1 % (18.0-39.1); MEAN CORPUSCULAR HEMOGLOBIN 24.3 pg (28-32); MEAN CORPUSCULAR HGB CONC 29.5 g/dL (31-35); MEAN CORPUSCULAR VOLUME 82.3 fL (81-99); MONOCYTES # (AUTO) 0.7 (0.2-0.8); MONOCYTES % 7.2 % (4.4-11.3); NEUTROPHILS # (AUTO) 7.5 (2.1-6.9); NEUTROPHILS % 83.2 % (38.7-80.0); PLATELET COUNT 363 x10e3/uL (140-360); RED CELL DISTRIBUTION WIDTH 16.6 % (11.7-14.4); WHITE BLOOD COUNT 9.02 x10e3/uL (4.8-10.8)
[2023-12-08] MEDS ORDERED: SODIUM CHLORIDE 0.9% 1000ML 1,000 ML IV STA (06:10)
[2023-12-08 06:11] LABS: ALBUMIN/GLOBULIN RATIO 0.3 (0.8-2.0); ALKALINE PHOSPHATASE 69 IU/L (40-150); ANION GAP 14.9 mmol/L (8-16); BILIRUBIN,TOTAL 0.2 mg/dL (0.2-1.2); BLOOD UREA NITROGEN 9 mg/dL (7-26); BUN/CREATININE RATIO 15 (6-25); CALCIUM 8.5 mg/dL (8.4-10.2); CARBON DIOXIDE 23 mmol/L (22-29); CHLORIDE 103 mmol/L (98-107); EST GLOMERULAR FILTRATION RATE 132 ML/MIN (>=60); GLUCOSE 87 mg/dL (74-118); POTASSIUM 3.9 mmol/L (3.5-5.1); SODIUM 137 mmol/L (136-145); TOTAL PROTEIN 7.9 g/dL (6.5-8.1)
[2023-12-08 06:12] LABS: ALANINE AMINOTRANSFERASE < 6 IU/L (0-55)
[2023-12-08] MEDS ORDERED: Morphine 4mg INJECTION 4 MG/ML INJ IV STA (06:14)
[2023-12-08] MEDS ORDERED: LEVOFLOXACIN 750MG/D5W 150ML 150 ML IV SCH (06:30)
[2023-12-08] MEDS ORDERED: IOPAMIDOL 370 MG/ML 100 ML INFUS..BTL INJ ONE (06:36)
[2023-12-08] MEDS: SODIUM CHLORIDE 0.9% 1000ML 1,000 ML IV SCH ×2 (09:18→15:41)
[2023-12-08 10:01] VITALS: BP 93/71; PULSE 82; RESP 15; TEMP 97.5; O2SAT 100
[2023-12-08] MEDS ORDERED: ACETAMINOPHEN 325 MG TAB PO PRN (10:45)
[2023-12-08 13:48] VITALS: BP 93/71; PULSE 82; RESP 15; TEMP 97.5; O2SAT 100
[2023-12-08] MEDS: Morphine 4mg INJECTION 4 MG/ML INJ IV PRN ×2 (15:09→18:47)
[2023-12-08] MEDS: DICYCLOMINE HCL 20 MG TAB PO SCH ×2 (15:41→21:27)
[2023-12-08 16:10] VITALS: BP 94/70; PULSE 78; RESP 16; TEMP 98.7; O2SAT 98
[2023-12-08] MEDS: GABAPENTIN 100 MG CAP PO SCH (16:23)
[2023-12-08] MEDS: TRIMETHOPRIM/SULFAMETHOXAZOLE 160-800 MG TAB PO SCH (16:23)
[2023-12-08] MEDS: AZITHROMYCIN 250 MG TAB PO SCH (16:23)
[2023-12-08] MEDS: RIFAMPIN 300 MG CAP PO SCH (16:23)
[2023-12-08] MEDS: ETHAMBUTOL HCL 400 MG TAB PO SCH (16:24)
[2023-12-08] MEDS: PYRIDOXINE HCL 50 MG TAB PO SCH (16:24)
[2023-12-08] MEDS: ONDANSETRON HCL INJ 2MG/ML 2ML 2 MG/ML VIAL IV PRN (18:53)
[2023-12-08 20:00] VITALS: BP 114/84; PULSE 89; RESP 18; TEMP 98.6; O2SAT 95
[2023-12-08 21:00] VITALS: BP 114/84; PULSE 89; RESP 18; TEMP 98.6; O2SAT 95
[2023-12-08] MEDS: HYDROMORPHONE 1MG/1ML INJ IV PRN (21:27)
[2023-12-09] VITALS (8 sets, daily range): BP systolic 101–120; BP diastolic 68–86; PULSE 93–120; RESP 18–22; TEMP 97.8–98.6; O2SAT 98–100
[2023-12-09] MEDS: HYDROMORPHONE 1MG/1ML INJ IV PRN ×3 (00:40→07:57)
[2023-12-09] MEDS: SODIUM CHLORIDE 0.9% 1000ML 1,000 ML IV SCH ×3 (02:45→21:37)
[2023-12-09 06:06] LABS: BASOPHILS % 0.2 % (0.0-1.0); EOSINOPHILS % 0.2 % (0.0-6.0); HEMATOCRIT 25.1 % (38.2-49.6); HEMOGLOBIN 7.3 g/dL (14.0-18.0); LYMPHOCYTES # (AUTO) 0.3 (1.0-3.2); MEAN CORPUSCULAR HEMOGLOBIN 23.9 pg (28-32); MEAN CORPUSCULAR HGB CONC 29.1 g/dL (31-35); MONOCYTES # (AUTO) 0.7 (0.2-0.8); MONOCYTES % 8.1 % (4.4-11.3); NEUTROPHILS % 85.4 % (38.7-80.0); PLATELET COUNT 326 x10e3/uL (140-360); RED BLOOD COUNT 3.06 x10e6/uL (4.3-5.7); RED CELL DISTRIBUTION WIDTH 16.6 % (11.7-14.4); WHITE BLOOD COUNT 8.25 x10e3/uL (4.8-10.8)
[2023-12-09 06:29] LABS: ALBUMIN 1.7 g/dL (3.5-5.0); ALBUMIN/GLOBULIN RATIO 0.3 (0.8-2.0); ANION GAP 12.6 mmol/L (8-16); BILIRUBIN,TOTAL 0.5 mg/dL (0.2-1.2); CALCIUM 8.2 mg/dL (8.4-10.2); CREATININE, SERUM 0.52 mg/dL (0.72-1.25); POTASSIUM 3.6 mmol/L (3.5-5.1)
[2023-12-09] MEDS: ONDANSETRON HCL INJ 2MG/ML 2ML 2 MG/ML VIAL IV PRN ×2 (07:58→12:26)
[2023-12-09] MEDS ORDERED: PYRAZINAMIDE 500 MG TAB PO SCH (09:00)
[2023-12-09] MEDS ORDERED: ISONIAZID 300 MG TAB PO SCH (09:00)
[2023-12-09] MEDS ORDERED: ETHAMBUTOL HCL 400 MG TAB PO SCH (09:00)
[2023-12-09] MEDS ORDERED: RIFAMPIN 300 MG CAP PO SCH (09:00)
[2023-12-09] MEDS ORDERED: RIFABUTIN 150 MG CAP PO SCH (09:00)
[2023-12-09] MEDS ORDERED: TRAMADOL HCL 50 MG TAB PO PRN (10:45)
[2023-12-09] MEDS: GABAPENTIN 100 MG CAP PO SCH ×2 (11:09→16:45)
[2023-12-09] MEDS: PYRIDOXINE HCL 50 MG TAB PO SCH (11:09)
[2023-12-09] MEDS: TRIMETHOPRIM/SULFAMETHOXAZOLE 160-800 MG TAB PO SCH ×2 (11:10→16:45)
[2023-12-09] MEDS: RIFAMPIN 300 MG CAP PO SCH (11:10)
[2023-12-09] MEDS: ETHAMBUTOL HCL 400 MG TAB PO SCH (11:10)
[2023-12-09] MEDS: AZITHROMYCIN 250 MG TAB PO SCH (11:11)
[2023-12-09] MEDS: (Dolutegravir Sodium (Tivicay) 1 TAB) PO SCH (11:11)
[2023-12-09] MEDS: EMTRICITABINE PO SCH (11:11)
[2023-12-09] MEDS: TENOFOVIR PO SCH (11:11)
[2023-12-09] MEDS: DICYCLOMINE HCL 20 MG TAB PO SCH ×3 (11:11→21:37)
[2023-12-09] MEDS: Morphine 2mg Syringe 2 MG/ML SYR IV PRN ×3 (12:27→23:31)
[2023-12-09] MEDS: IBUPROFEN 400 MG TAB PO PRN (16:45)
[2023-12-10] VITALS: BP 110/77; PULSE 86; RESP 20; TEMP 97.7; O2SAT 100
[2023-12-10] MEDS: IBUPROFEN 400 MG TAB PO PRN ×3 (00:04→11:29)
[2023-12-10 04:00] VITALS: BP 91/72; PULSE 83; RESP 20; TEMP 98; O2SAT 100
[2023-12-10 06:01] LABS: BASOPHILS % 0.1 % (0.0-1.0); EOSINOPHILS % 0.2 % (0.0-6.0); HEMATOCRIT 24.9 % (38.2-49.6); HEMOGLOBIN 7.4 g/dL (14.0-18.0); LYMPHOCYTES # (AUTO) 0.4 (1.0-3.2); LYMPHOCYTES % 4.1 % (18.0-39.1); MEAN CORPUSCULAR HEMOGLOBIN 24.4 pg (28-32); MEAN CORPUSCULAR HGB CONC 29.7 g/dL (31-35); MEAN CORPUSCULAR VOLUME 82.2 fL (81-99); MONOCYTES # (AUTO) 0.5 (0.2-0.8); NEUTROPHILS # (AUTO) 7.3 (2.1-6.9); NEUTROPHILS % 84.3 % (38.7-80.0); PLATELET COUNT 282 x10e3/uL (140-360); RED BLOOD COUNT 3.03 x10e6/uL (4.3-5.7); RED CELL DISTRIBUTION WIDTH 16.7 % (11.7-14.4); WHITE BLOOD COUNT 8.63 x10e3/uL (4.8-10.8)
[2023-12-10] MEDS: Morphine 2mg Syringe 2 MG/ML SYR IV PRN (07:02)
[2023-12-10 08:00] VITALS: BP 91/72; PULSE 83; RESP 20; TEMP 98; O2SAT 100
[2023-12-10 09:00] VITALS: BP 106/74; PULSE 99; RESP 18; TEMP 98.2; O2SAT 100
[2023-12-10] MEDS: ONDANSETRON HCL INJ 2MG/ML 2ML 2 MG/ML VIAL IV PRN (11:28)
[2023-12-10] MEDS: ETHAMBUTOL HCL 400 MG TAB PO SCH (11:29)
[2023-12-10] MEDS: TRIMETHOPRIM/SULFAMETHOXAZOLE 160-800 MG TAB PO SCH (11:29)
[2023-12-10] MEDS: RIFAMPIN 300 MG CAP PO SCH (11:30)
[2023-12-10] MEDS: PYRIDOXINE HCL 50 MG TAB PO SCH (11:30)
[2023-12-10] MEDS: GABAPENTIN 100 MG CAP PO SCH (11:30)
[2023-12-10] MEDS: DICYCLOMINE HCL 20 MG TAB PO SCH ×2 (11:30→16:27)
[2023-12-10] MEDS: AZITHROMYCIN 250 MG TAB PO SCH (11:30)
[2023-12-10] MEDS: TENOFOVIR PO SCH (11:31)
[2023-12-10] MEDS: EMTRICITABINE PO SCH (11:31)
[2023-12-10] MEDS: (Dolutegravir Sodium (Tivicay) 1 TAB) PO SCH (11:31)
[2023-12-10] MEDS ORDERED: IBUPROFEN600 MG PO (12:05)
[2023-12-10 12:12] VITALS: BP 100/70; PULSE 101; RESP 19; TEMP 98.4; O2SAT 100
[2023-12-10] MEDS ORDERED: ULTRAM 50MG50 MG PO (15:33)
== END 2023-12-10 16:54 | disposition home or self-care (01) | DRG 977 ==
LOC: ER 05:32 → ERHOLD 07:59 → MED/SURG2 09:45
PROVIDERS: ADMIT Internal Medicine; ATTEND Internal Medicine
DX: B20 Human immunodeficiency virus [HIV] disease (principal); K85.90 Acute pancreatitis without necrosis or infection, unspecified; A31.0 Pulmonary mycobacterial infection; R59.0 Localized enlarged lymph nodes; R10.32 Left lower quadrant pain; D64.9 Anemia, unspecified; K21.9 Gastro-esophageal reflux disease without esophagitis; Z91.148 Patient's other noncompliance with medication regimen for other reason; Z79.899 Other long term (current) drug therapy; Z11.52 Encounter for screening for COVID-19
CPT/HCPCS: 36415; 71045; 74177; 80053; 83605; 83690; 85025; 87040; 87400; 93005; 99285; J1170; J1885; J2270; J2405; J7030; Q9967; U0002

== ENCOUNTER 2024-08-05 12:49 | Emergency (ER) | payer MEDICAID, OTHER ==
[~2024-08-05] VITALS: Ht 170.2 cm; Wt 50.8 kg
[~2024-08-05 12:49] MED LIST changes: +IBUPROFEN600 MG PO
[2024-08-05 13:00] VITALS: PULSE 118; RESP 18; TEMP 99.5
[2024-08-05 14:09] LABS: BASOPHILS % 0.1 % (0.0-1.0); EOSINOPHILS % 0.4 % (0.0-6.0); HEMATOCRIT 29.2 % (38.2-49.6); HEMOGLOBIN 8.8 g/dL (14.0-18.0); LYMPHOCYTES # (AUTO) 0.6 (1.0-3.2); LYMPHOCYTES % 7.3 % (18.0-39.1); MEAN CORPUSCULAR HEMOGLOBIN 25.2 pg (28-32); MEAN CORPUSCULAR HGB CONC 30.1 g/dL (31-35); MEAN CORPUSCULAR VOLUME 83.7 fL (81-99); MONOCYTES # (AUTO) 0.5 (0.2-0.8); NEUTROPHILS # (AUTO) 6.7 (2.1-6.9); NEUTROPHILS % 85.8 % (38.7-80.0); PLATELET COUNT 254 x10e3/uL (140-360); RED BLOOD COUNT 3.49 x10e6/uL (4.3-5.7); RED CELL DISTRIBUTION WIDTH 14.8 % (11.7-14.4); WHITE BLOOD COUNT 7.81 x10e3/uL (4.8-10.8)
[2024-08-05 14:13] LABS: INR 1.1; PROTHROMBIN TIME 14.8 seconds (11.9-14.5)
[2024-08-05 14:33] LABS: ANION GAP 5.7 mmol/L (8-16); BLOOD UREA NITROGEN 7 mg/dL (7-22); BUN/CREATININE RATIO 23 (6-25); CALCIUM 8.3 mg/dL (8.0-10.3); CARBON DIOXIDE 30 mmol/L (18-33); CHLORIDE 97 mmol/L (101-111); EST GLOMERULAR FILTRATION RATE 162 ML/MIN (>=60); GLUCOSE 84 mg/dL (73-118); POTASSIUM 3.7 mmol/L (3.0-5.1); SODIUM 129 mmol/L (128-145)
[2024-08-05 14:34] LABS: ALANINE AMINOTRANSFERASE 13 IU/L (10-47); ALBUMIN 2.6 g/dL (3.3-5.5); ALBUMIN/GLOBULIN RATIO 0.4 (0.8-2.0); ALKALINE PHOSPHATASE 85 IU/L (42-141); BILIRUBIN,TOTAL 0.5 mg/dL (0.2-1.6); TOTAL PROTEIN 8.5 g/dL (6.4-8.1)
[2024-08-05] MEDS ORDERED: IOPAMIDOL 370 MG/ML 100 ML INFUS..BTL INJ ONE (14:45)
[2024-08-05] MEDS: Morphine 2mg Syringe 2 MG/ML SYR IV STA (14:57)
[2024-08-05] MEDS: ONDANSETRON HCL INJ 2MG/ML 2ML 2 MG/ML VIAL IV STA (14:57)
[2024-08-05] MEDS: SODIUM CHLORIDE 0.9% 1000ML 1,000 ML IV STA (14:57)
[2024-08-05] MEDS: CEFEPIME 2 GM in SODIUM CHLORIDE 0.9% 100 ML IV ONE (14:58)
[2024-08-05 15:00] LABS: TROPONIN I < 0.001 ng/mL (0-0.300)
[2024-08-05 16:33] LABS: CREATINE KINASE 7 IU/L (30-200); LIPASE 24 U/L (8-78); MAGNESIUM 1.7 MG/DL (1.3-2.1)
[2024-08-05 18:15] VITALS: BP 121/84; PULSE 98; RESP 18; TEMP 98.6; O2SAT 98
== END 2024-08-05 18:18 | disposition home or self-care (01) ==
LOC: ER 13:11
DX: R10.12 Left upper quadrant pain (principal); R18.8 Other ascites; D64.9 Anemia, unspecified; K59.00 Constipation, unspecified; B20 Human immunodeficiency virus [HIV] disease; G62.9 Polyneuropathy, unspecified
CPT/HCPCS: 36415; 71045; 74177; 80053; 82550; 83605; 83690; 83735; 84484; 85025; 85610; 85730; 86850; 86900; 87040; 87400; 93005; 99284; J0692; J2270; J2405; J7030; J7050; Q9967; U0002